=== PATIENT | female | born 1960 | race Caucasian/White ===

== ENCOUNTER 2017-03-09 01:07 | Inpatient (IN) | payer MEDICARE, MEDICAID ==
[~2017-03-09] VITALS: Ht 170.2 cm; Wt 84.0 kg
[~2017-03-09 01:07] MED LIST: ADV50250 IH; ASPI-41 PO; CARV-50 PO; CLON-527 PO; IPRA3AMP9 IH; LISI40TA4 PO; MIRT15TA8 PO; PRAV80TA3 PO; RANI-366 PO; ROPI0.252 PO; SENN-161 PO; TORS20TA3 PO; UMEC62.5 INH
[2017-03-09] MEDS ORDERED: normal saline 1000ML IV soln IVB ONE (01:15)
[2017-03-09 01:51] LABS: ABG BASE EXCESS 8.3 mmol/L (-2.0-3.0); ABG HCO3 34.9 mmol/L (22.0-26.0); ABG OXYGEN SATURATION 97.2 % (95-98); ABG PCO2 (T) 62.7 mmHg (32.0-45.0); ABG PH (T) 7.367 (7.350-7.450); ABG PO2 (T) 112.9 mmHg (83-108); FCOHb 1.4 % (0.5-1.5); FLOW 5 L/min; FMetHb 0.1 % (0.3-1.12); FO2Hb 95.7 % (94-100); PATIENT TEMPERATURE 37.9; RESPIRATORY RATE (OBSERVED) 16 b/min; TOTAL HEMOGLOBIN 10.1 G/dl (12.0-16.0)
[2017-03-09 02:05] LABS: INR 1.1 INR; PARTIAL THROMBOPLASTIN TIME 24 SECONDS (22-32); PROTHROMBIN TIME 11.3 SECONDS (9.0-12.0)
[2017-03-09 02:08] LABS: ACETAMINOPHEN < 2.0 UG/ML (10-30); ALANINE AMINOTRANSFERASE 38 U/L (12-78); ALBUMIN 2.6 G/DL (3.4-5.0); ALBUMIN/GLOBULIN RATIO 0.9 (1.1-1.5); ALKALINE PHOSPHATASE 79 IU/L (46-116); ANION GAP 3 (8-16); ASPARTATE AMINO TRANSFERASE 25 U/L (10-37); BILIRUBIN,TOTAL 1.1 MG/DL (0.1-1.0); BLOOD UREA NITROGEN 15 MG/DL (7-18); CALCIUM 7.6 MG/DL (8.5-10.1); CHLORIDE 100 MMOL/L (99-107); CREATININE 0.94 MG/DL (0.40-0.90); ETHANOL < 0.010 GM/DL (0.0-0.010); GLUCOSE 97 MG/DL (70-104); MAGNESIUM 1.8 MG/DL (1.5-2.4); POTASSIUM 3.7 MMOL/L (3.5-5.1); SODIUM 139 MMOL/L (135-145); TOTAL CARBON DIOXIDE 35.9 MMOL/L (24-32); TOTAL PROTEIN 5.4 G/DL (6.4-8.2); eGFR 62 ML/MIN
[2017-03-09 02:14] LABS: BASOPHILS % (AUTO) 0 % (0-1); EOSINOPHILS % (AUTO) 0.2 % (0-6); HEMATOCRIT 29.9 % (35.0-45.0); HEMOGLOBIN 9.9 g/dl (12.0-16.0); LYMPHOCYTES # (AUTO) 0.7 X10'3 (1.1-4.8); LYMPHOCYTES % (AUTO) 5.7 % (21-51); MEAN CORPUSCULAR HGB CONC 33.2 % (33.0-36.5); MEAN CORPUSCULAR VOLUME 84.5 FL (78-98); MEAN PLATELET VOLUME 7.7 FL (7.4-10.4); MONOCYTES # (AUTO) 0.6 X10'3 (0-0.9); MONOCYTES % (AUTO) 4.6 % (2-12); NEUTROPHILS # (AUTO) 11.8 X10'3 (1.8-7.7); NEUTROPHILS % (AUTO) 89.5 % (42-75); PLATELET COUNT 142 X10'3 (140-440); RED BLOOD COUNT 3.54 X10'6 (4.20-5.60); RED CELL DISTRIBUTION WIDTH 17.4 % (11.5-14.5); WHITE BLOOD COUNT 13.1 X10'3 (4.5-11.0)
[2017-03-09 02:47] LABS: CLARITY,URINE CLEAR (Clear); COLOR,URINE YELLOW (Yellow); GLUCOSE, URINE NEGATIVE (Neg); KETONES,URINE NEGATIVE (Neg); LEUKOCYTE ESTERASE ,URINE SMALL (Neg); NITRITES, URINE NEGATIVE (Neg); OCCULT BLOOD,URINE SMALL (Neg); PH,URINE 5.5 (4.8-8.0); PROTEIN,URINE NEGATIVE (Neg); UROBILINOGEN,URINE 0.2 E.U/dL (0.2-1.0)
[2017-03-09 02:54] LABS: UA COLLECTION TYPE STRAIGHT CATH
[2017-03-09 02:55] LABS: BACTERIA,URINE FEW /HPF (Neg); RBC,URINE 0-2 /HPF (0-2); SQUAMOUS EPITHELIAL CELL,UR FEW /LPF (FEW); WBC,URINE 0-4 /HPF (0-4)
[2017-03-09 03:30] LABS: URINE BENZODIAZEPINES SCREEN NEGATIVE (Neg); URINE CANNABINOID SCREEN NEGATIVE (Neg); URINE COCAINE SCREEN NEGATIVE (Neg); URINE METHADONE SCREEN NEGATIVE (Neg); URINE OPIATE SCREEN POSITIVE (Neg); URINE PHENCYCLIDINE SCREEN NEGATIVE (Neg)
[2017-03-09 03:44] LABS: URINE AMPHETAMINE SCREEN NEGATIVE (Neg); URINE BARBITUATE SCREEN NEGATIVE (Neg)
[2017-03-09] MEDS ORDERED: acetaminophen 325mg tablet PO PRN ×2 (03:45)
[2017-03-09] MEDS ORDERED: albuterol 2.5 MG/3 ML nebule NEB PRN (03:45)
[2017-03-09] MEDS ORDERED: magnesium 2GM in 50ml NS 50 ML IV PRN (03:45)
[2017-03-09] MEDS ORDERED: ondansetron/PF 4mg/2ml inj IV PRN (03:45)
[2017-03-09] MEDS ORDERED: magnesium Cl slow-release 64mg tablet PO PRN (03:45)
[2017-03-09] MEDS ORDERED: potassium Cl 20 mEq SR tablet PO PRN ×2 (03:45)
[2017-03-09] MEDS ORDERED: magnesium 4gm in 100ml NS 100 ML IV PRN (03:45)
[2017-03-09] MEDS ORDERED: mag hydrox/Alum hydrox/simeth 30ml oral suspension PO PRN (03:45)
[2017-03-09] MEDS ORDERED: potassium Cl 40MEQ/NS 500ml 500 ML IV PRN ×2 (03:45)
[2017-03-09] MEDS: normal saline 1000ml 1,000 ML IV SCH ×2 (04:41→13:43)
[2017-03-09 07:33] VITALS: BP 106/66
[2017-03-09] MEDS: K and/or MAG REPLACEMENT MC SCH (08:00)
[2017-03-09] MEDS ORDERED: clonazePAM 1mg tablet PO SCH ×2 (08:00→20:00)
[2017-03-09] MEDS ORDERED: furosemide 40mg tablet PO SCH (08:00)
[2017-03-09] MEDS ORDERED: carVEDilol 12.5mg tablet PO SCH (08:00)
[2017-03-09] MEDS: levoFLOXACIN-Levaquin 500mg/D5 100 ML IV SCH (08:51)
[2017-03-09] MEDS: aspirin 325mg tablet, delayed-release (Ecotrin) PO SCH (08:51)
[2017-03-09] MEDS: lactobacillus rhamnosus 10,000 MMU CELLS/CAPSULE PO SCH ×2 (08:52→16:42)
[2017-03-09] MEDS: heparin, porcine 5000 units/ml vial SQ SCH ×2 (08:52→21:12)
[2017-03-09] MEDS: ROPINIRole 0.25mg tablet PO SCH ×2 (08:52→21:10)
[2017-03-09] MEDS: famotidine 20mg tablet PO SCH ×2 (08:53→21:10)
[2017-03-09] MEDS ORDERED: carVEDilol 3.125mg tablet PO SCH (09:40)
[2017-03-09] MEDS ORDERED: PER5325T PO (10:52)
[2017-03-09 11:33] VITALS: BP 93/47
[2017-03-09] MEDS: oxyCODONE/APAP 5-325mg tablet PO PRN ×3 (12:58→21:13)
[2017-03-09 19:30] VITALS: BP 94/80
[2017-03-09] MEDS ORDERED: lisinopril 2.5mg tablet PO SCH (21:00)
[2017-03-09] MEDS: pravastatin 40mg tablet PO SCH (21:10)
[2017-03-09] MEDS: mirtazapine 15mg tablet PO SCH (21:12)
[2017-03-09] MEDS: sennosides 8.6mg tablet PO SCH (21:12)
[2017-03-09] MEDS: clonazePAM 1mg tablet PO PRN (21:28)
[2017-03-10] VITALS: BP 110/81
[2017-03-10] MEDS: oxyCODONE/APAP 5-325mg tablet PO PRN ×4 (01:20→13:54)
[2017-03-10 06:42] LABS: BASOPHILS % (AUTO) 0.4 % (0-1); EOSINOPHILS # (AUTO) 0.1 X10'3 (0-0.9); EOSINOPHILS % (AUTO) 2.1 % (0-6); HEMATOCRIT 26.6 % (35.0-45.0); HEMOGLOBIN 8.5 g/dl (12.0-16.0); LYMPHOCYTES # (AUTO) 0.9 X10'3 (1.1-4.8); LYMPHOCYTES % (AUTO) 14.8 % (21-51); MEAN CORPUSCULAR HEMOGLOBIN 27.5 PG (27.0-31.0); MEAN CORPUSCULAR HGB CONC 31.9 % (33.0-36.5); MEAN CORPUSCULAR VOLUME 86.1 FL (78-98); MEAN PLATELET VOLUME 7.2 FL (7.4-10.4); MONOCYTES # (AUTO) 0.4 X10'3 (0-0.9); MONOCYTES % (AUTO) 6.5 % (2-12); NEUTROPHILS # (AUTO) 4.5 X10'3 (1.8-7.7); NEUTROPHILS % (AUTO) 76.2 % (42-75); PLATELET COUNT 114 X10'3 (140-440); RED BLOOD COUNT 3.09 X10'6 (4.20-5.60); WHITE BLOOD COUNT 5.8 X10'3 (4.5-11.0)
[2017-03-10 07:39] LABS: ALANINE AMINOTRANSFERASE 34 U/L (12-78); ALBUMIN 2.1 G/DL (3.4-5.0); ALBUMIN/GLOBULIN RATIO 0.7 (1.1-1.5); ALKALINE PHOSPHATASE 86 IU/L (46-116); ANION GAP 1 (8-16); ASPARTATE AMINO TRANSFERASE 23 U/L (10-37); BILIRUBIN,TOTAL 0.6 MG/DL (0.1-1.0); BLOOD UREA NITROGEN 10 MG/DL (7-18); BUN/CREATININE RATIO 15.9 (6.6-38.0); CALCIUM 7.9 MG/DL (8.5-10.1); CHLORIDE 108 MMOL/L (99-107); CHOLESTEROL 120 MG/DL (0-200); CREATININE 0.63 MG/DL (0.40-0.90); GLUCOSE 126 MG/DL (70-104); HDL CHOLESTEROL 60 MG/DL (35-60); LDL CHOLESTEROL 51 MG/DL (50-100); MAGNESIUM 1.9 MG/DL (1.5-2.4); POTASSIUM 3.9 MMOL/L (3.5-5.1); SODIUM 146 MMOL/L (135-145); TOTAL CARBON DIOXIDE 36.9 MMOL/L (24-32); TRIGLYCERIDES 89 MG/DL (20-135); eGFR > 90 ML/MIN
[2017-03-10 08:00] VITALS: BP 106/64
[2017-03-10] MEDS: K and/or MAG REPLACEMENT MC SCH (08:00)
[2017-03-10] MEDS: lactobacillus rhamnosus 10,000 MMU CELLS/CAPSULE PO SCH ×2 (08:38→17:44)
[2017-03-10] MEDS: levoFLOXACIN-Levaquin 500mg/D5 100 ML IV SCH (08:38)
[2017-03-10] MEDS: aspirin 325mg tablet, delayed-release (Ecotrin) PO SCH (08:38)
[2017-03-10] MEDS: famotidine 20mg tablet PO SCH ×2 (08:38→20:50)
[2017-03-10] MEDS: ROPINIRole 0.25mg tablet PO SCH ×2 (08:39→20:51)
[2017-03-10] MEDS: clonazePAM 1mg tablet PO PRN (08:39)
[2017-03-10] MEDS: furosemide 20MG tablet PO SCH ×3 (08:39→20:50)
[2017-03-10] MEDS: heparin, porcine 5000 units/ml vial SQ SCH ×2 (08:42→20:51)
[2017-03-10 11:33] VITALS: BP_SYST 121; BP_SYST 123; BP_SYST 124; BP_DIAS 69; BP_DIAS 71; BP_DIAS 84
[2017-03-10 11:34] VITALS: BP 123/71
[2017-03-10] MEDS: Protein Shake (high protein) 240ml (8oz) cup PO SCH ×2 (13:09→19:10)
[2017-03-10] MEDS: oxyCODONE/APAP 10/325mg tablet PO PRN ×2 (17:44→22:41)
[2017-03-10] MEDS: ipratropium/albuterol 3ml nebule NEB PRN (18:57)
[2017-03-10 19:15] VITALS: BP 110/61
[2017-03-10] MEDS: pravastatin 40mg tablet PO SCH (20:50)
[2017-03-10] MEDS: mirtazapine 15mg tablet PO SCH (20:50)
[2017-03-10] MEDS: sennosides 8.6mg tablet PO SCH (20:50)
[2017-03-10 23:30] VITALS: BP 108/68
[2017-03-11] MEDS: oxyCODONE/APAP 10/325mg tablet PO PRN ×6 (02:52→23:59)
[2017-03-11 05:33] LABS: BASOPHILS % (AUTO) 0.4 % (0-1); EOSINOPHILS # (AUTO) 0.1 X10'3 (0-0.9); EOSINOPHILS % (AUTO) 2.3 % (0-6); HEMATOCRIT 24.8 % (35.0-45.0); HEMOGLOBIN 7.9 g/dl (12.0-16.0); LYMPHOCYTES % (AUTO) 17.2 % (21-51); MEAN CORPUSCULAR HEMOGLOBIN 27.6 PG (27.0-31.0); MEAN CORPUSCULAR VOLUME 86.1 FL (78-98); MEAN PLATELET VOLUME 7.4 FL (7.4-10.4); MONOCYTES # (AUTO) 0.3 X10'3 (0-0.9); MONOCYTES % (AUTO) 5.9 % (2-12); NEUTROPHILS # (AUTO) 4.3 X10'3 (1.8-7.7); NEUTROPHILS % (AUTO) 74.2 % (42-75); PLATELET COUNT 111 X10'3 (140-440); RED BLOOD COUNT 2.88 X10'6 (4.20-5.60); RED CELL DISTRIBUTION WIDTH 18.7 % (11.5-14.5); WHITE BLOOD COUNT 5.9 X10'3 (4.5-11.0)
[2017-03-11 05:49] VITALS: BP 101/61
[2017-03-11] MEDS: furosemide 20MG tablet PO SCH ×2 (05:50→16:04)
[2017-03-11 06:15] LABS: ALANINE AMINOTRANSFERASE 33 U/L (12-78); ALBUMIN 2.1 G/DL (3.4-5.0); ALBUMIN/GLOBULIN RATIO 0.8 (1.1-1.5); ALKALINE PHOSPHATASE 76 IU/L (46-116); ANION GAP 3 (8-16); ASPARTATE AMINO TRANSFERASE 22 U/L (10-37); BILIRUBIN,TOTAL 0.6 MG/DL (0.1-1.0); BLOOD UREA NITROGEN 12 MG/DL (7-18); BUN/CREATININE RATIO 21.4 (6.6-38.0); CHLORIDE 105 MMOL/L (99-107); CREATININE 0.56 MG/DL (0.40-0.90); GLUCOSE 108 MG/DL (70-104); MAGNESIUM 1.7 MG/DL (1.5-2.4); SODIUM 143 MMOL/L (135-145); TOTAL CARBON DIOXIDE 35.4 MMOL/L (24-32); TOTAL PROTEIN 4.9 G/DL (6.4-8.2); eGFR > 90 ML/MIN
[2017-03-11] MEDS: lactobacillus rhamnosus 10,000 MMU CELLS/CAPSULE PO SCH ×2 (07:24→17:53)
[2017-03-11] MEDS: levoFLOXACIN-Levaquin 500mg/D5 100 ML IV SCH (07:24)
[2017-03-11] MEDS: aspirin 325mg tablet, delayed-release (Ecotrin) PO SCH (07:24)
[2017-03-11] MEDS: famotidine 20mg tablet PO SCH ×2 (07:24→19:45)
[2017-03-11] MEDS: ROPINIRole 0.25mg tablet PO SCH ×2 (07:24→19:45)
[2017-03-11] MEDS: heparin, porcine 5000 units/ml vial SQ SCH (07:29)
[2017-03-11] MEDS: K and/or MAG REPLACEMENT MC SCH (07:29)
[2017-03-11 07:30] VITALS: BP 119/73
[2017-03-11] MEDS: clonazePAM 1mg tablet PO PRN ×2 (07:44→23:59)
[2017-03-11] MEDS: Protein Shake (high protein) 240ml (8oz) cup PO SCH ×3 (08:00→18:00)
[2017-03-11] MEDS: ipratropium/albuterol 3ml nebule NEB PRN (11:26)
[2017-03-11] MEDS: magnesium hydroxide 30ml (MOM) UD suspension PO PRN (13:15)
[2017-03-11] MEDS ORDERED: magnesium hydroxide 30ml (MOM) UD suspension PO ONE (14:35)
[2017-03-11 18:25] LABS: % IRON SATURATION 11 % (11-46); IRON 33 UG/DL (49-151); TOTAL IRON BINDING CAPACITY 301 UG/DL (259-388)
[2017-03-11] MEDS: mirtazapine 15mg tablet PO SCH (19:45)
[2017-03-11] MEDS: pravastatin 40mg tablet PO SCH (19:45)
[2017-03-11] MEDS: sennosides 8.6mg tablet PO SCH (19:46)
[2017-03-11 20:10] VITALS: BP_SYST 106; BP_SYST 127; BP_DIAS 74; BP_DIAS 80
[2017-03-11] MEDS ORDERED: docusate sod 250mg capsule PO SCH (21:00)
[2017-03-11 23:45] VITALS: BP 99/59
[2017-03-12] MEDS: furosemide 20MG tablet PO SCH (04:55)
[2017-03-12 04:56] VITALS: BP 105/63
[2017-03-12] MEDS: oxyCODONE/APAP 10/325mg tablet PO PRN ×2 (04:56→09:18)
[2017-03-12] MEDS: magnesium hydroxide 30ml (MOM) UD suspension PO PRN (05:10)
[2017-03-12 06:01] LABS: BASOPHILS % (AUTO) 0.3 % (0-1); EOSINOPHILS # (AUTO) 0.1 X10'3 (0-0.9); EOSINOPHILS % (AUTO) 2.3 % (0-6); HEMATOCRIT 26.7 % (35.0-45.0); HEMOGLOBIN 8.6 g/dl (12.0-16.0); LYMPHOCYTES # (AUTO) 1.1 X10'3 (1.1-4.8); LYMPHOCYTES % (AUTO) 20.9 % (21-51); MEAN CORPUSCULAR HEMOGLOBIN 27.6 PG (27.0-31.0); MEAN CORPUSCULAR VOLUME 86.2 FL (78-98); MEAN PLATELET VOLUME 7.4 FL (7.4-10.4); MONOCYTES # (AUTO) 0.3 X10'3 (0-0.9); MONOCYTES % (AUTO) 5.1 % (2-12); NEUTROPHILS # (AUTO) 3.9 X10'3 (1.8-7.7); NEUTROPHILS % (AUTO) 71.4 % (42-75); PLATELET COUNT 124 X10'3 (140-440); RED CELL DISTRIBUTION WIDTH 20.1 % (11.5-14.5); WHITE BLOOD COUNT 5.4 X10'3 (4.5-11.0)
[2017-03-12 06:16] LABS: ALANINE AMINOTRANSFERASE 31 U/L (12-78); ALBUMIN 2.2 G/DL (3.4-5.0); ALBUMIN/GLOBULIN RATIO 0.7 (1.1-1.5); ALKALINE PHOSPHATASE 91 IU/L (46-116); ANION GAP 2 (8-16); ASPARTATE AMINO TRANSFERASE 22 U/L (10-37); BILIRUBIN,TOTAL 0.7 MG/DL (0.1-1.0); BLOOD UREA NITROGEN 12 MG/DL (7-18); BUN/CREATININE RATIO 17.6 (6.6-38.0); CALCIUM 7.9 MG/DL (8.5-10.1); CHLORIDE 103 MMOL/L (99-107); CREATININE 0.68 MG/DL (0.40-0.90); GLUCOSE 96 MG/DL (70-104); MAGNESIUM 1.8 MG/DL (1.5-2.4); POTASSIUM 4.2 MMOL/L (3.5-5.1); SODIUM 140 MMOL/L (135-145); TOTAL CARBON DIOXIDE 34.7 MMOL/L (24-32); TOTAL PROTEIN 5.3 G/DL (6.4-8.2); eGFR 90 ML/MIN
[2017-03-12] MEDS: K and/or MAG REPLACEMENT MC SCH (08:00)
[2017-03-12] MEDS: aspirin 325mg tablet, delayed-release (Ecotrin) PO SCH (08:17)
[2017-03-12] MEDS: ROPINIRole 0.25mg tablet PO SCH (08:17)
[2017-03-12] MEDS: lactobacillus rhamnosus 10,000 MMU CELLS/CAPSULE PO SCH (08:17)
[2017-03-12] MEDS: famotidine 20mg tablet PO SCH (08:17)
[2017-03-12] MEDS: levoFLOXACIN-Levaquin 500mg/D5 100 ML IV SCH (08:17)
[2017-03-12] MEDS: Protein Shake (high protein) 240ml (8oz) cup PO SCH ×2 (08:18→13:05)
[2017-03-12 08:27] VITALS: BP 130/76
[2017-03-12] MEDS: clonazePAM 1mg tablet PO PRN (10:59)
[2017-03-12] MEDS ORDERED: oxyCODONE IR 5mg (immed. release) tablet PO PRN (11:55)
[2017-03-12 12:01] VITALS: BP 117/70
== END 2017-03-12 15:00 | DRG 91 ==
LOC: ER 01:08 → ED HOLD 03:43 → SUR 3N 07:27
PROVIDERS: ADMIT Internal Medicine; ATTEND Internal Medicine
DX: G92 Toxic encephalopathy (principal); I50.33 Acute on chronic diastolic (congestive) heart failure; J44.0 Chronic obstructive pulmonary disease with (acute) lower respiratory infection; J44.1 Chronic obstructive pulmonary disease with (acute) exacerbation; W18.39XA Other fall on same level, initial encounter; D64.9 Anemia, unspecified; E78.5 Hyperlipidemia, unspecified; F32.9 Major depressive disorder, single episode, unspecified; G89.4 Chronic pain syndrome; I11.0 Hypertensive heart disease with heart failure; J20.9 Acute bronchitis, unspecified; K21.9 Gastro-esophageal reflux disease without esophagitis; F41.9 Anxiety disorder, unspecified; R29.6 Repeated falls; R91.1 Solitary pulmonary nodule; T42.8X5A Adverse effect of antiparkinsonism drugs and other central muscle-tone depressants, initial encounter; T42.4X5A Adverse effect of benzodiazepines, initial encounter; T40.2X5A Adverse effect of other opioids, initial encounter; F12.90 Cannabis use, unspecified, uncomplicated; Z96.641 Presence of right artificial hip joint; Z88.5 Allergy status to narcotic agent; Z87.891 Personal history of nicotine dependence; Y93.89 Activity, other specified; Y99.8 Other external cause status; Y92.008 Other place in unspecified non-institutional (private) residence as the place of occurrence of the external cause
CPT/HCPCS: 36415; 36600; 70450; 71010; 71250; 73521; 80053; 80061; 80305; 80320; 80329; 81001; 82803; 83540; 83550; 83605; 83735; 85018; 85025; 85610; 85730; 87040; 87070; 87088; 93005; 94640; 94760; 96360; 97116; 97162; 97530; 99285; A4353; A6196; A6212; A6213; A6223; A6255; A6446; A6449; J1644; J1956; J7030

== ENCOUNTER 2017-04-08 16:52 | Inpatient (IN) | payer MEDICARE, MEDICAID ==
[~2017-04-08] VITALS: Ht 170.2 cm; Wt 90.0 kg
[~2017-04-08 16:52] MED LIST changes: +PER5325T PO; +etomidate 2mg/ml inj. ONE; +rocuronium 10mg/ml inj IV ONE; +sod chloride 0.9% 10ml flush syringe IV ONE
[2017-04-08] MEDS ORDERED: propofol 1000mg/100ml bottle 100 ML IV SCH (17:25)
[2017-04-08] MEDS ORDERED: dexamethasone sod phosphate 10mg/ml inj IV STA (17:29)
[2017-04-08] MEDS ORDERED: etomidate 2mg/ml inj. IV ONE (17:30)
[2017-04-08] MEDS ORDERED: levoFLOXACIN-Levaquin 750MG/D5 150 ML IV ONE (17:30)
[2017-04-08] MEDS ORDERED: CefTRIAXone 2gm/NS 100ml IVPB 100 ML IV ONE (17:30)
[2017-04-08] MEDS ORDERED: propofol 1000mg/100ml bottle 100 ML IV ONE (17:30)
[2017-04-08] MEDS ORDERED: normal saline 1000ML IV soln IV ONE (17:30)
[2017-04-08] MEDS ORDERED: rocuronium 10mg/ml inj IV ONE (17:30)
[2017-04-08 17:31] LABS: ABG BASE EXCESS 10.3 mmol/L (-2.0-3.0); ABG HCO3 38.5 mmol/L (22.0-26.0); ABG OXYGEN SATURATION 99.2 % (95-98); ABG PCO2 (T) 75.4 mmHg (32.0-45.0); ABG PH (T) 7.326 (7.350-7.450); ABG PO2 (T) 261.1 mmHg (83-108); ALLEN'S TEST Positive; FCOHb 1.1 % (0.5-1.5); FLOW 35 L/min; FMetHb 0.2 % (0.3-1.12); FO2Hb 97.9 % (94-100); MINUTE VOLUME 8 L/min; PEEP 5 cm H2O; RESPIRATORY RATE 16 b/min; RESPIRATORY RATE (OBSERVED) 16 b/min; TIDAL VOLUME 500 mL; TOTAL HEMOGLOBIN 10.2 G/dl (12.0-16.0)
[2017-04-08 18:04] LABS: ALANINE AMINOTRANSFERASE 26 U/L (12-78); ALBUMIN 2.7 G/DL (3.4-5.0); ALBUMIN/GLOBULIN RATIO 0.7 (1.1-1.5); ALKALINE PHOSPHATASE 130 IU/L (46-116); ANION GAP 3 (8-16); ASPARTATE AMINO TRANSFERASE 28 U/L (10-37); BILIRUBIN,TOTAL 0.3 MG/DL (0.1-1.0); BLOOD UREA NITROGEN 21 MG/DL (7-18); BUN/CREATININE RATIO 26.3 (6.6-38.0); CALCIUM 8.4 MG/DL (8.5-10.1); CHLORIDE 101 MMOL/L (99-107); GLUCOSE 166 MG/DL (70-104); SODIUM 141 MMOL/L (135-145); TOTAL PROTEIN 6.6 G/DL (6.4-8.2); eGFR 74 ML/MIN
[2017-04-08 18:05] LABS: POTASSIUM 4.7 MMOL/L (3.5-5.1)
[2017-04-08 18:15] LABS: BASOPHILS % (AUTO) 0.1 % (0-1); EOSINOPHILS # (AUTO) 0.2 X10'3 (0-0.9); EOSINOPHILS % (AUTO) 1.5 % (0-6); HEMATOCRIT 26.9 % (35.0-45.0); HEMOGLOBIN 8.3 g/dl (12.0-16.0); LYMPHOCYTES # (AUTO) 0.7 X10'3 (1.1-4.8); LYMPHOCYTES % (AUTO) 6.6 % (21-51); MEAN CORPUSCULAR HEMOGLOBIN 24.8 PG (27.0-31.0); MEAN CORPUSCULAR HGB CONC 30.7 % (33.0-36.5); MEAN PLATELET VOLUME 7.6 FL (7.4-10.4); MONOCYTES # (AUTO) 0.7 X10'3 (0-0.9); MONOCYTES % (AUTO) 5.9 % (2-12); NEUTROPHILS # (AUTO) 9.5 X10'3 (1.8-7.7); NEUTROPHILS % (AUTO) 85.9 % (42-75); PLATELET COUNT 288 X10'3 (140-440); RED BLOOD COUNT 3.32 X10'6 (4.20-5.60); RED CELL DISTRIBUTION WIDTH 20.8 % (11.5-14.5); WHITE BLOOD COUNT 11.1 X10'3 (4.5-11.0)
[2017-04-08 18:22] LABS: CLARITY,URINE CLEAR (Clear); COLOR,URINE YELLOW (Yellow); GLUCOSE, URINE NEGATIVE (Neg); KETONES,URINE NEGATIVE (Neg); LEUKOCYTE ESTERASE ,URINE NEGATIVE (Neg); NITRITES, URINE NEGATIVE (Neg); OCCULT BLOOD,URINE NEGATIVE (Neg); PH,URINE 5.5 (4.8-8.0); PROTEIN,URINE TRACE mg/dl (Neg); UA COLLECTION TYPE FOLEY CATH; UROBILINOGEN,URINE 0.2 E.U/dL (0.2-1.0)
[2017-04-08] MEDS ORDERED: midazolam 100mg in NS 100ml 100 ML IV ONE (18:25)
[2017-04-08] MEDS ORDERED: MIDAZolam 5mg/ml 2ml vial IV ONE (18:25)
[2017-04-08 18:26] LABS: INR 1.2 INR; PARTIAL THROMBOPLASTIN TIME 23 SECONDS (22-32); PROTHROMBIN TIME 12.4 SECONDS (9.0-12.0)
[2017-04-08] MEDS ORDERED: midazolam 2 mg/2 ml injection ONE ×2 (18:27→18:32)
[2017-04-08 18:31] LABS: NUCLEATED RED BLOOD CELLS 2 /100WBC (0-0); PLATELET ESTIMATE NORMAL; POLYCHROMASIA 1+; TOTAL CELLS COUNTED 100
[2017-04-08 18:33] LABS: ANISOCYTOSIS 3+
[2017-04-08 18:34] LABS: HYPOCHROMASIA 2+
[2017-04-08 18:34] LABS: WBC,URINE NONE SEEN /HPF (0-4)
[2017-04-08 18:35] LABS: ELLIPTOCYTES FEW; TEAR DROP CELLS FEW
[2017-04-08 18:35] LABS: BACTERIA,URINE NONE SEEN /HPF (Neg); HYALINE CASTS >30 /LPF (NEGATIVE); MUCUS STRANDS FEW /LPF (Neg); RBC,URINE 0-2 /HPF (0-2); SQUAMOUS EPITHELIAL CELL,UR NONE SEEN /LPF (FEW)
[2017-04-08] MEDS ORDERED: midazolam 100mg in NS 100ml 100 ML IV PRN (18:53)
[2017-04-08] MEDS ORDERED: fentaNYL/PF 50MCG/1 ML 2ML syringe IV PRN (18:55)
[2017-04-08] MEDS ORDERED: potassium Cl 20 mEq SR tablet PO PRN ×2 (18:55)
[2017-04-08] MEDS ORDERED: ondansetron/PF 4mg/2ml inj IV PRN (18:55)
[2017-04-08] MEDS ORDERED: ipratropium/albuterol 3ml nebule IH PRN (18:55)
[2017-04-08] MEDS ORDERED: acetaminophen 325mg tablet PO PRN ×2 (18:55)
[2017-04-08] MEDS ORDERED: midazolam 2 mg/2 ml injection IV ONE (18:55)
[2017-04-08] MEDS ORDERED: potassium Cl 40MEQ/250ML bag 250 ML IV PRN (18:55)
[2017-04-08] MEDS ORDERED: ipratropium/albuterol 3ml nebule NEB PRN (18:55)
[2017-04-08] MEDS ORDERED: potassium Cl 40MEQ/250ML bag 250 ML IV SCH (18:55)
[2017-04-08] MEDS ORDERED: potassium Cl 40MEQ/NS 500ml 500 ML IV PRN ×2 (18:55)
[2017-04-08] MEDS: ipratropium/albuterol 3ml nebule NEB SCH ×2 (19:00→23:30)
[2017-04-08] MEDS: normal saline 1000ml 1,000 ML IV SCH ×3 (19:05→22:34)
[2017-04-08] MEDS: docusate sod 100mg capsule PO SCH (20:00)
[2017-04-08 21:30] VITALS: BP 103/70
[2017-04-08] MEDS: FENTANYL-0.9 % NACL/PF 100 ML IV PRN (21:34)
[2017-04-08] MEDS: UMECLIDINIUM BROMIDE IH SCH (21:45)
[2017-04-08 22:00] VITALS: BP 127/60
[2017-04-08] MEDS: midazolam 100mg in NS 100ml 100 ML IV SCH (22:31)
[2017-04-08] MEDS: mirtazapine 15mg tablet PO SCH (22:41)
[2017-04-08] MEDS: sennosides 8.6mg tablet PO SCH (22:41)
[2017-04-08] MEDS: methylPREDNISolone sod succ 125mg/2ml vial IV SCH (22:42)
[2017-04-08] MEDS: famotidine/PF 10 mg/ml inj IV SCH (22:42)
[2017-04-08] MEDS: chlorhexidine gluconate 15ml Cup****oral rinse MM SCH (22:42)
[2017-04-08 23:00] VITALS: BP 110/71
[2017-04-09] VITALS (24 sets, daily range): BP systolic 92–124; BP diastolic 57–77
[2017-04-09] MEDS: methylPREDNISolone sod succ 125mg/2ml vial IV SCH ×4 (01:58→20:00)
[2017-04-09 02:40] LABS: BASOPHILS % (AUTO) 0 % (0-1); EOSINOPHILS # (AUTO) 0.2 X10'3 (0-0.9); EOSINOPHILS % (AUTO) 1.9 % (0-6); HEMATOCRIT 26.8 % (35.0-45.0); HEMOGLOBIN 8.3 g/dl (12.0-16.0); LYMPHOCYTES # (AUTO) 0.5 X10'3 (1.1-4.8); LYMPHOCYTES % (AUTO) 4.1 % (21-51); MEAN CORPUSCULAR HEMOGLOBIN 24.8 PG (27.0-31.0); MEAN CORPUSCULAR HGB CONC 30.9 % (33.0-36.5); MEAN CORPUSCULAR VOLUME 80.1 FL (78-98); MEAN PLATELET VOLUME 7.7 FL (7.4-10.4); MONOCYTES # (AUTO) 0.1 X10'3 (0-0.9); MONOCYTES % (AUTO) 0.8 % (2-12); NEUTROPHILS # (AUTO) 10.7 X10'3 (1.8-7.7); NEUTROPHILS % (AUTO) 93.2 % (42-75); PLATELET COUNT 237 X10'3 (140-440); RED BLOOD COUNT 3.34 X10'6 (4.20-5.60); RED CELL DISTRIBUTION WIDTH 20.3 % (11.5-14.5); WHITE BLOOD COUNT 11.5 X10'3 (4.5-11.0)
[2017-04-09 02:59] LABS: ALANINE AMINOTRANSFERASE 24 U/L (12-78); ALBUMIN 2.4 G/DL (3.4-5.0); ALBUMIN/GLOBULIN RATIO 0.7 (1.1-1.5); ALKALINE PHOSPHATASE 109 IU/L (46-116); ANION GAP 6 (8-16); ASPARTATE AMINO TRANSFERASE 21 U/L (10-37); BILIRUBIN,TOTAL 0.3 MG/DL (0.1-1.0); BLOOD UREA NITROGEN 13 MG/DL (7-18); BUN/CREATININE RATIO 21.7 (6.6-38.0); CHLORIDE 106 MMOL/L (99-107); GLUCOSE 114 MG/DL (70-104); MAGNESIUM 1.9 MG/DL (1.5-2.4); PHOSPHORUS 3.4 MG/DL (2.3-4.5); POTASSIUM 4.1 MMOL/L (3.5-5.1); SODIUM 144 MMOL/L (135-145); TOTAL CARBON DIOXIDE 32.3 MMOL/L (24-32); TOTAL PROTEIN 5.8 G/DL (6.4-8.2); eGFR > 90 ML/MIN
[2017-04-09] MEDS: ipratropium/albuterol 3ml nebule NEB SCH ×6 (03:57→23:52)
[2017-04-09 05:06] LABS: ABG BASE EXCESS 2.6 mmol/L (-2.0-3.0); ABG HCO3 25.9 mmol/L (22.0-26.0); ABG OXYGEN SATURATION 94.5 % (95-98); ABG PCO2 (T) 35.5 mmHg (32.0-45.0); ABG PH (T) 7.484 (7.350-7.450); ABG PO2 (T) 70.9 mmHg (83-108); FCOHb 1.3 % (0.5-1.5); FMetHb 0.1 % (0.3-1.12); FO2Hb 93.2 % (94-100); MINUTE VOLUME 17 L/min; PATIENT TEMPERATURE 37.7; PEEP 5 cm H2O; RESPIRATORY RATE 20 b/min; TIDAL VOLUME 500 mL; TOTAL HEMOGLOBIN 7.8 G/dl (12.0-16.0)
[2017-04-09] MEDS: midazolam 100mg in NS 100ml 100 ML IV SCH (05:36)
[2017-04-09] MEDS: normal saline 1000ml 1,000 ML IV SCH (06:27)
[2017-04-09] MEDS: famotidine/PF 10 mg/ml inj IV SCH ×2 (07:52→20:01)
[2017-04-09] MEDS: enoxaparin 40mg/0.4ml syringe SUBCUT SCH (07:52)
[2017-04-09] MEDS: cefTRIAXone 1g/NS 100ml IVPB 100 ML IV SCH (07:53)
[2017-04-09] MEDS: chlorhexidine gluconate 15ml Cup****oral rinse MM SCH (07:55)
[2017-04-09] MEDS: aspirin 325mg tablet, delayed-release (Ecotrin) PO SCH (08:00)
[2017-04-09] MEDS: UMECLIDINIUM BROMIDE IH SCH (08:00)
[2017-04-09] MEDS: docusate sod 100mg capsule PO SCH ×2 (08:00→20:02)
[2017-04-09] MEDS: atorvastatin 20mg tablet PO SCH (08:00)
[2017-04-09] MEDS ORDERED: furosemide 40mg/4ml inj ONE (08:29)
[2017-04-09] MEDS ORDERED: furosemide 40mg/4ml inj IV ONE (08:30)
[2017-04-09] MEDS: FENTANYL-0.9 % NACL/PF 100 ML IV PRN (10:42)
[2017-04-09] MEDS: clonazePAM 1mg tablet PO SCH ×2 (14:29→20:02)
[2017-04-09] MEDS: oxyCODONE/APAP 5-325mg tablet PO PRN ×2 (14:30→18:46)
[2017-04-09 16:04] LABS: MAGNESIUM 2.1 MG/DL (1.5-2.4); PHOSPHORUS 3.6 MG/DL (2.3-4.5); POTASSIUM 3.7 MMOL/L (3.5-5.1)
[2017-04-09] MEDS: lactobacillus rhamnosus 10,000 MMU CELLS/CAPSULE PO SCH (16:56)
[2017-04-09] MEDS ORDERED: mineral oil/petrolatum ophthal oint EACHEYE SCH (20:00)
[2017-04-09] MEDS: sennosides 8.6mg tablet PO SCH (20:02)
[2017-04-09] MEDS: mirtazapine 15mg tablet PO SCH (20:02)
[2017-04-10] VITALS (16 sets, daily range): BP systolic 92–134; BP diastolic 39–82
[2017-04-10] MEDS: oxyCODONE/APAP 5-325mg tablet PO PRN ×6 (00:11→22:10)
[2017-04-10] MEDS ORDERED: vancomycin/NS 1 GM ADD-VANTAGE 250 ML IV ONE (01:20)
[2017-04-10] MEDS: methylPREDNISolone sod succ 125mg/2ml vial IV SCH ×3 (02:08→20:48)
[2017-04-10] MEDS: ipratropium/albuterol 3ml nebule NEB SCH ×6 (03:00→22:49)
[2017-04-10 03:54] LABS: BASOPHILS % (AUTO) 0 % (0-1); EOSINOPHILS % (AUTO) 0 % (0-6); HEMATOCRIT 25.1 % (35.0-45.0); HEMOGLOBIN 7.9 g/dl (12.0-16.0); LYMPHOCYTES # (AUTO) 0.5 X10'3 (1.1-4.8); LYMPHOCYTES % (AUTO) 6.4 % (21-51); MEAN CORPUSCULAR HEMOGLOBIN 24.9 PG (27.0-31.0); MEAN CORPUSCULAR HGB CONC 31.5 % (33.0-36.5); MEAN PLATELET VOLUME 8.1 FL (7.4-10.4); MONOCYTES # (AUTO) 0.2 X10'3 (0-0.9); MONOCYTES % (AUTO) 3.3 % (2-12); NEUTROPHILS # (AUTO) 6.7 X10'3 (1.8-7.7); NEUTROPHILS % (AUTO) 90.3 % (42-75); PLATELET COUNT 246 X10'3 (140-440); RED BLOOD COUNT 3.17 X10'6 (4.20-5.60); RED CELL DISTRIBUTION WIDTH 20.9 % (11.5-14.5); WHITE BLOOD COUNT 7.4 X10'3 (4.5-11.0)
[2017-04-10 04:08] LABS: ALANINE AMINOTRANSFERASE 19 U/L (12-78); ALBUMIN 2.4 G/DL (3.4-5.0); ALBUMIN/GLOBULIN RATIO 0.7 (1.1-1.5); ALKALINE PHOSPHATASE 94 IU/L (46-116); ANION GAP 7 (8-16); ASPARTATE AMINO TRANSFERASE 15 U/L (10-37); BILIRUBIN,TOTAL 0.3 MG/DL (0.1-1.0); BLOOD UREA NITROGEN 13 MG/DL (7-18); BUN/CREATININE RATIO 18.6 (6.6-38.0); CALCIUM 8.1 MG/DL (8.5-10.1); CHLORIDE 106 MMOL/L (99-107); GLUCOSE 127 MG/DL (70-104); MAGNESIUM 2.3 MG/DL (1.5-2.4); PHOSPHORUS 2.8 MG/DL (2.3-4.5); POTASSIUM 3.8 MMOL/L (3.5-5.1); SODIUM 146 MMOL/L (135-145); TOTAL PROTEIN 5.7 G/DL (6.4-8.2); eGFR 87 ML/MIN
[2017-04-10] MEDS: famotidine/PF 10 mg/ml inj IV SCH ×2 (07:49→20:50)
[2017-04-10] MEDS: atorvastatin 20mg tablet PO SCH (07:52)
[2017-04-10] MEDS: enoxaparin 40mg/0.4ml syringe SUBCUT SCH (07:52)
[2017-04-10] MEDS: cefTRIAXone 1g/NS 100ml IVPB 100 ML IV SCH (07:52)
[2017-04-10] MEDS: docusate sod 100mg capsule PO SCH ×2 (07:52→20:46)
[2017-04-10] MEDS: clonazePAM 1mg tablet PO SCH ×3 (07:52→20:46)
[2017-04-10] MEDS: lactobacillus rhamnosus 10,000 MMU CELLS/CAPSULE PO SCH ×2 (07:52→17:36)
[2017-04-10] MEDS: aspirin 325mg tablet, delayed-release (Ecotrin) PO SCH (07:53)
[2017-04-10] MEDS: UMECLIDINIUM BROMIDE IH SCH (07:53)
[2017-04-10] MEDS: vancomycin inj 1,250 MG in normal saline 250ml IV soln 250 ML IV SCH ×2 (10:39→17:31)
[2017-04-10] MEDS: furosemide 40mg/4ml inj IV SCH (20:40)
[2017-04-10] MEDS: sennosides 8.6mg tablet PO SCH (20:46)
[2017-04-10] MEDS: mirtazapine 15mg tablet PO SCH (20:47)
[2017-04-11] VITALS: BP 124/75
[2017-04-11] MEDS ORDERED: temazepam 15mg capsule PO PRN (01:10)
[2017-04-11] MEDS: vancomycin inj 1,250 MG in normal saline 250ml IV soln 250 ML IV SCH ×2 (01:37→10:00)
[2017-04-11] MEDS: ipratropium/albuterol 3ml nebule NEB SCH ×4 (02:55→14:09)
[2017-04-11] MEDS: oxyCODONE/APAP 5-325mg tablet PO PRN ×3 (04:53→14:13)
[2017-04-11 06:05] LABS: BASOPHILS % (AUTO) 0.1 % (0-1); EOSINOPHILS # (AUTO) 0.2 X10'3 (0-0.9); EOSINOPHILS % (AUTO) 1.8 % (0-6); HEMATOCRIT 26.9 % (35.0-45.0); HEMOGLOBIN 8.4 g/dl (12.0-16.0); LYMPHOCYTES # (AUTO) 0.7 X10'3 (1.1-4.8); MEAN CORPUSCULAR HEMOGLOBIN 24.8 PG (27.0-31.0); MEAN CORPUSCULAR HGB CONC 31.4 % (33.0-36.5); MEAN CORPUSCULAR VOLUME 79.1 FL (78-98); MEAN PLATELET VOLUME 7.4 FL (7.4-10.4); MONOCYTES # (AUTO) 0.6 X10'3 (0-0.9); MONOCYTES % (AUTO) 5.9 % (2-12); NEUTROPHILS # (AUTO) 8.1 X10'3 (1.8-7.7); NEUTROPHILS % (AUTO) 85.2 % (42-75); PLATELET COUNT 265 X10'3 (140-440); RED CELL DISTRIBUTION WIDTH 20.4 % (11.5-14.5); WHITE BLOOD COUNT 9.5 X10'3 (4.5-11.0)
[2017-04-11 06:36] LABS: ALANINE AMINOTRANSFERASE 23 U/L (12-78); ALBUMIN 2.4 G/DL (3.4-5.0); ALBUMIN/GLOBULIN RATIO 0.8 (1.1-1.5); ALKALINE PHOSPHATASE 103 IU/L (46-116); ANION GAP 2 (8-16); ASPARTATE AMINO TRANSFERASE 17 U/L (10-37); BILIRUBIN,TOTAL 0.3 MG/DL (0.1-1.0); BLOOD UREA NITROGEN 20 MG/DL (7-18); BUN/CREATININE RATIO 28.6 (6.6-38.0); CALCIUM 7.6 MG/DL (8.5-10.1); CHLORIDE 108 MMOL/L (99-107); GLUCOSE 113 MG/DL (70-104); MAGNESIUM 2.3 MG/DL (1.5-2.4); PHOSPHORUS 3.3 MG/DL (2.3-4.5); POTASSIUM 4.2 MMOL/L (3.5-5.1); SODIUM 146 MMOL/L (135-145); TOTAL CARBON DIOXIDE 36.4 MMOL/L (24-32); TOTAL PROTEIN 5.4 G/DL (6.4-8.2); eGFR 87 ML/MIN
[2017-04-11 07:00] VITALS: BP 122/78
[2017-04-11] MEDS: cefTRIAXone 1g/NS 100ml IVPB 100 ML IV SCH (07:42)
[2017-04-11] MEDS: famotidine/PF 10 mg/ml inj IV SCH (07:42)
[2017-04-11] MEDS: lactobacillus rhamnosus 10,000 MMU CELLS/CAPSULE PO SCH (07:43)
[2017-04-11] MEDS: methylPREDNISolone sod succ 125mg/2ml vial IV SCH (07:43)
[2017-04-11] MEDS: docusate sod 100mg capsule PO SCH (07:43)
[2017-04-11] MEDS: furosemide 40mg/4ml inj IV SCH (07:43)
[2017-04-11] MEDS: atorvastatin 20mg tablet PO SCH (07:43)
[2017-04-11] MEDS: mirtazapine 15mg tablet PO SCH (07:44)
[2017-04-11] MEDS: aspirin 325mg tablet, delayed-release (Ecotrin) PO SCH (07:44)
[2017-04-11] MEDS: clonazePAM 1mg tablet PO SCH ×2 (07:44→13:00)
[2017-04-11] MEDS: UMECLIDINIUM BROMIDE IH SCH (08:00)
[2017-04-11] MEDS: enoxaparin 40mg/0.4ml syringe SUBCUT SCH (08:01)
[2017-04-11] MEDS ORDERED: VANCOMYCIN LEVEL IV NR (09:30)
[2017-04-11] MEDS ORDERED: ALPRAZolam 0.25mg tablet PO PRN (10:10)
[2017-04-11] MEDS ORDERED: LEVO500T2 PO (10:11)
[2017-04-11 11:10] LABS: ABG BASE EXCESS 5.4 mmol/L (-2.0-3.0); ABG OXYGEN SATURATION 92.4 % (95-98); ABG PCO2 (T) 44.1 mmHg (32.0-45.0); ABG PO2 (T) 64.3 mmHg (83-108); ALLEN'S TEST Negative; FCOHb 0.4 % (0.5-1.5); FLOW 2 L/min; FMetHb 0.1 % (0.3-1.12); FO2Hb 91.9 % (94-100); TOTAL HEMOGLOBIN 10.8 G/dl (12.0-16.0)
[2017-04-11] MEDS ORDERED: famotidine 20mg tablet PO SCH (20:00)
== END 2017-04-11 16:30 | disposition home health service (06) | DRG 208 ==
LOC: ER 16:52 → ED HOLD 18:53 → ICU 2S 20:23 → MED 3N 04-10 15:00
PROVIDERS: ADMIT Internal Medicine Critical Care Medicine; ATTEND Internal Medicine
PROC: 5A1935Z Respiratory Ventilation, Less than 24 Consecutive Hours (ICD-10-PCS; principal; 2017-04-08)
PROC: 0BH17EZ Insertion of Endotracheal Airway into Trachea, Via Natural or Artificial Opening (ICD-10-PCS; 2017-04-08)
PROC: 02HV33Z Insertion of Infusion Device into Superior Vena Cava, Percutaneous Approach (ICD-10-PCS; 2017-04-08)
DX: J96.20 Acute and chronic respiratory failure, unspecified whether with hypoxia or hypercapnia (principal); I50.33 Acute on chronic diastolic (congestive) heart failure; J18.1 Lobar pneumonia, unspecified organism; I11.0 Hypertensive heart disease with heart failure; J44.0 Chronic obstructive pulmonary disease with (acute) lower respiratory infection; J44.1 Chronic obstructive pulmonary disease with (acute) exacerbation; D64.9 Anemia, unspecified; E78.5 Hyperlipidemia, unspecified; F12.90 Cannabis use, unspecified, uncomplicated; K21.9 Gastro-esophageal reflux disease without esophagitis; G89.4 Chronic pain syndrome; F32.9 Major depressive disorder, single episode, unspecified; F41.9 Anxiety disorder, unspecified; Z96.643 Presence of artificial hip joint, bilateral; Z98.891 History of uterine scar from previous surgery; Z88.8 Allergy status to other drugs, medicaments and biological substances; Z79.899 Other long term (current) drug therapy; Z79.01 Long term (current) use of anticoagulants; Z79.82 Long term (current) use of aspirin; Z87.891 Personal history of nicotine dependence
CPT/HCPCS: 36415; 36600; 70450; 71045; 80053; 80202; 81001; 82803; 83735; 83880; 84100; 84132; 84145; 84484; 85018; 85025; 85610; 85730; 87040; 87070; 87077; 87186; 87502; 87503; 93005; 94002; 94003; 94640; 94760; 96365; 96375; 97116; 97161; 97530; 99291; A6213; A7015; C1751; C1758; J0696; J1100; J1650; J1940; J1956; J2250; J2704; J2930; J3370; J3490; J7030

== ENCOUNTER 2017-04-19 16:51 | Inpatient (IN) | payer MEDICARE, MEDICAID ==
[~2017-04-19] VITALS: Ht 162.6 cm; Wt 97.0 kg
[~2017-04-19 16:51] MED LIST changes: +LEVO500T2 PO; -etomidate 2mg/ml inj. ONE; -rocuronium 10mg/ml inj IV ONE; -sod chloride 0.9% 10ml flush syringe IV ONE
[2017-04-19] MEDS ORDERED: ipratropium/albuterol 3ml nebule NEB ONE (17:15)
[2017-04-19] MEDS ORDERED: methylPREDNISolone sod succ 125mg/2ml vial IV ONE ×2 (17:15→20:00)
[2017-04-19 17:41] LABS: ABG BASE EXCESS 12.4 mmol/L (-2.0-3.0); ABG HCO3 43.1 mmol/L (22.0-26.0); ABG OXYGEN SATURATION 91.9 % (95-98); ABG PCO2 (T) 104.5 mmHg (32.0-45.0); ABG PH (T) 7.233 (7.350-7.450); ABG PO2 (T) 69.7 mmHg (83-108); ALLEN'S TEST Positive; FCOHb 3.3 % (0.5-1.5); FLOW 3 L/min; FMetHb 0.1 % (0.3-1.12); FO2Hb 88.8 % (94-100); TOTAL HEMOGLOBIN 10.5 G/dl (12.0-16.0)
[2017-04-19 17:45] LABS: BASOPHILS # (AUTO) 0.1 X10'3 (0-0.2); BASOPHILS % (AUTO) 0.6 % (0-1); EOSINOPHILS # (AUTO) 0.2 X10'3 (0-0.9); EOSINOPHILS % (AUTO) 1.9 % (0-6); HEMATOCRIT 31.3 % (35.0-45.0); HEMOGLOBIN 9.6 g/dl (12.0-16.0); LYMPHOCYTES # (AUTO) 1.5 X10'3 (1.1-4.8); LYMPHOCYTES % (AUTO) 12.4 % (21-51); MEAN CORPUSCULAR HEMOGLOBIN 24.1 PG (27.0-31.0); MEAN CORPUSCULAR HGB CONC 30.5 % (33.0-36.5); MEAN CORPUSCULAR VOLUME 78.9 FL (78-98); MEAN PLATELET VOLUME 6.9 FL (7.4-10.4); MONOCYTES # (AUTO) 0.8 X10'3 (0-0.9); MONOCYTES % (AUTO) 6.6 % (2-12); NEUTROPHILS # (AUTO) 9.2 X10'3 (1.8-7.7); NEUTROPHILS % (AUTO) 78.5 % (42-75); PLATELET COUNT 256 X10'3 (140-440); RED BLOOD COUNT 3.97 X10'6 (4.20-5.60); RED CELL DISTRIBUTION WIDTH 21.1 % (11.5-14.5); WHITE BLOOD COUNT 11.7 X10'3 (4.5-11.0)
[2017-04-19] MEDS: albuterol 2.5 MG/3 ML nebule CONTNEB PRN (17:53)
[2017-04-19 18:01] LABS: INR 1.1 INR; PARTIAL THROMBOPLASTIN TIME 28 SECONDS (22-32); PROTHROMBIN TIME 10.9 SECONDS (9.0-12.0)
[2017-04-19 18:07] LABS: ALANINE AMINOTRANSFERASE 21 U/L (12-78); ALBUMIN/GLOBULIN RATIO 0.9 (1.1-1.5); ALKALINE PHOSPHATASE 128 IU/L (46-116); ANION GAP 1 (8-16); ASPARTATE AMINO TRANSFERASE 17 U/L (10-37); BILIRUBIN,TOTAL 0.4 MG/DL (0.1-1.0); BLOOD UREA NITROGEN 20 MG/DL (7-18); CALCIUM 7.8 MG/DL (8.5-10.1); CHLORIDE 97 MMOL/L (99-107); GLUCOSE 107 MG/DL (70-104); POTASSIUM 4.1 MMOL/L (3.5-5.1); SODIUM 138 MMOL/L (135-145); TOTAL PROTEIN 6.5 G/DL (6.4-8.2); eGFR 74 ML/MIN
[2017-04-19] MEDS ORDERED: CefTRIAXone 2gm/NS 100ml IVPB 100 ML IV ONE (18:45)
[2017-04-19] MEDS: K, MAG and/or Phos replacement - Verify level? MC SCH (18:45)
[2017-04-19] MEDS ORDERED: potassium Cl 20 mEq SR tablet PO PRN ×2 (18:45)
[2017-04-19] MEDS ORDERED: ondansetron/PF 4mg/2ml inj IV PRN (18:45)
[2017-04-19] MEDS ORDERED: acetaminophen 325mg tablet PO PRN ×2 (18:45)
[2017-04-19] MEDS ORDERED: morphine 5 MG/ML injection IV PRN (18:45)
[2017-04-19] MEDS ORDERED: magnesium hydroxide 30ml (MOM) UD suspension PO PRN (18:45)
[2017-04-19] MEDS ORDERED: azithromycin 250mg tablet PO ONE (18:45)
[2017-04-19 19:06] LABS: ABG BASE EXCESS 10.4 mmol/L (-2.0-3.0); ABG OXYGEN SATURATION 94.1 % (95-98); ABG PCO2 (T) 74.8 mmHg (32.0-45.0); ABG PO2 (T) 69.2 mmHg (83-108); ALLEN'S TEST Positive; FCOHb 3.3 % (0.5-1.5); FMetHb 0.1 % (0.3-1.12); FO2Hb 90.9 % (94-100); MINUTE VOLUME 21 L/min; PATIENT TEMPERATURE 35.9; RESPIRATORY RATE 20 b/min; RESPIRATORY RATE (OBSERVED) 26 b/min; TOTAL HEMOGLOBIN 10.6 G/dl (12.0-16.0)
[2017-04-19] MEDS: carVEDilol 3.125mg tablet PO SCH (19:24)
[2017-04-19] MEDS: morphine 5 MG/ML injection IV PRN (21:03)
[2017-04-19 21:30] VITALS: BP 127/86
[2017-04-19 22:00] VITALS: BP 91/58
[2017-04-19] MEDS: clonazePAM 1mg tablet PO SCH (22:22)
[2017-04-19] MEDS: sennosides 8.6mg tablet PO SCH (22:22)
[2017-04-19] MEDS: ROPINIRole 0.25mg tablet PO SCH (22:23)
[2017-04-19] MEDS: mirtazapine 15mg tablet PO SCH (22:23)
[2017-04-19 23:00] VITALS: BP 84/51
[2017-04-20] VITALS (15 sets, daily range): BP systolic 86–112; BP diastolic 57–71
[2017-04-20] MEDS: morphine 5 MG/ML injection IV PRN (05:04)
[2017-04-20 06:02] LABS: PARTIAL THROMBOPLASTIN TIME 23 SECONDS (22-32); PROTHROMBIN TIME 10.6 SECONDS (9.0-12.0)
[2017-04-20 06:09] LABS: BASOPHILS % (AUTO) 0 % (0-1); EOSINOPHILS # (AUTO) 0.1 X10'3 (0-0.9); EOSINOPHILS % (AUTO) 1.1 % (0-6); HEMATOCRIT 31.9 % (35.0-45.0); HEMOGLOBIN 9.9 g/dl (12.0-16.0); LYMPHOCYTES # (AUTO) 0.6 X10'3 (1.1-4.8); LYMPHOCYTES % (AUTO) 9.7 % (21-51); MEAN CORPUSCULAR HEMOGLOBIN 24.3 PG (27.0-31.0); MEAN CORPUSCULAR VOLUME 78.4 FL (78-98); MEAN PLATELET VOLUME 7.3 FL (7.4-10.4); MONOCYTES % (AUTO) 0.3 % (2-12); NEUTROPHILS # (AUTO) 5.8 X10'3 (1.8-7.7); NEUTROPHILS % (AUTO) 88.9 % (42-75); PLATELET COUNT 230 X10'3 (140-440); RED BLOOD COUNT 4.07 X10'6 (4.20-5.60); RED CELL DISTRIBUTION WIDTH 20.8 % (11.5-14.5); WHITE BLOOD COUNT 6.5 X10'3 (4.5-11.0)
[2017-04-20 06:24] LABS: ALANINE AMINOTRANSFERASE 15 U/L (12-78); ALBUMIN 2.9 G/DL (3.4-5.0); ALBUMIN/GLOBULIN RATIO 0.8 (1.1-1.5); ALKALINE PHOSPHATASE 115 IU/L (46-116); ANION GAP 2 (8-16); ASPARTATE AMINO TRANSFERASE 15 U/L (10-37); BILIRUBIN,TOTAL 0.3 MG/DL (0.1-1.0); BLOOD UREA NITROGEN 13 MG/DL (7-18); BUN/CREATININE RATIO 18.6 (6.6-38.0); CALCIUM 8.3 MG/DL (8.5-10.1); CHLORIDE 99 MMOL/L (99-107); GLUCOSE 136 MG/DL (70-104); PHOSPHORUS 3.8 MG/DL (2.3-4.5); POTASSIUM 4.8 MMOL/L (3.5-5.1); SODIUM 141 MMOL/L (135-145); TOTAL CARBON DIOXIDE 39.7 MMOL/L (24-32); TOTAL PROTEIN 6.5 G/DL (6.4-8.2); eGFR 87 ML/MIN
[2017-04-20 07:21] LABS: ABG BASE EXCESS 12.5 mmol/L (-2.0-3.0); ABG HCO3 39.3 mmol/L (22.0-26.0); ABG OXYGEN SATURATION 96.2 % (95-98); ABG PH (T) 7.399 (7.350-7.450); ABG PO2 (T) 83.6 mmHg (83-108); ALLEN'S TEST Positive; FCOHb 1.3 % (0.5-1.5); FMetHb 0.1 % (0.3-1.12); FO2Hb 94.9 % (94-100); MINUTE VOLUME 19 L/min; RESPIRATORY RATE 20 b/min; RESPIRATORY RATE (OBSERVED) 21 b/min; TOTAL HEMOGLOBIN 9.5 G/dl (12.0-16.0)
[2017-04-20] MEDS: K, MAG and/or Phos replacement - Verify level? MC SCH (08:00)
[2017-04-20] MEDS: clonazePAM 1mg tablet PO SCH ×3 (08:24→20:47)
[2017-04-20] MEDS: aspirin 325mg tablet, delayed-release (Ecotrin) PO SCH (08:24)
[2017-04-20] MEDS: ROPINIRole 0.25mg tablet PO SCH ×2 (08:25→20:49)
[2017-04-20] MEDS: carVEDilol 3.125mg tablet PO SCH ×2 (08:26→20:54)
[2017-04-20] MEDS: oxyCODONE/APAP 5-325mg tablet PO PRN ×2 (14:01→22:34)
[2017-04-20] MEDS: ipratropium/albuterol 3ml nebule IH PRN ×2 (18:42→22:59)
[2017-04-20] MEDS: sennosides 8.6mg tablet PO SCH (20:48)
[2017-04-20] MEDS: mirtazapine 15mg tablet PO SCH (20:48)
[2017-04-21] MEDS: temazepam 15mg capsule PO PRN (02:20)
[2017-04-21 03:00] VITALS: BP 103/60
[2017-04-21 05:36] LABS: INR 1.1 INR; PARTIAL THROMBOPLASTIN TIME 24 SECONDS (22-32); PROTHROMBIN TIME 11.6 SECONDS (9.0-12.0)
[2017-04-21 05:43] LABS: BASOPHILS % (AUTO) 0 % (0-1); EOSINOPHILS # (AUTO) 0.1 X10'3 (0-0.9); EOSINOPHILS % (AUTO) 1.5 % (0-6); HEMATOCRIT 25.9 % (35.0-45.0); LYMPHOCYTES # (AUTO) 1.9 X10'3 (1.1-4.8); LYMPHOCYTES % (AUTO) 24.1 % (21-51); MEAN CORPUSCULAR HGB CONC 30.9 % (33.0-36.5); MEAN CORPUSCULAR VOLUME 77.5 FL (78-98); MEAN PLATELET VOLUME 7.1 FL (7.4-10.4); MONOCYTES # (AUTO) 0.6 X10'3 (0-0.9); MONOCYTES % (AUTO) 7.8 % (2-12); NEUTROPHILS # (AUTO) 5.1 X10'3 (1.8-7.7); NEUTROPHILS % (AUTO) 66.6 % (42-75); PLATELET COUNT 216 X10'3 (140-440); RED BLOOD COUNT 3.34 X10'6 (4.20-5.60); RED CELL DISTRIBUTION WIDTH 20.6 % (11.5-14.5); WHITE BLOOD COUNT 7.7 X10'3 (4.5-11.0)
[2017-04-21 05:57] LABS: ALANINE AMINOTRANSFERASE 21 U/L (12-78); ALBUMIN 2.3 G/DL (3.4-5.0); ALBUMIN/GLOBULIN RATIO 0.8 (1.1-1.5); ALKALINE PHOSPHATASE 89 IU/L (46-116); ANION GAP 2 (8-16); ASPARTATE AMINO TRANSFERASE 15 U/L (10-37); BILIRUBIN,TOTAL 0.3 MG/DL (0.1-1.0); BLOOD UREA NITROGEN 14 MG/DL (7-18); BUN/CREATININE RATIO 17.5 (6.6-38.0); CALCIUM 7.9 MG/DL (8.5-10.1); CHLORIDE 104 MMOL/L (99-107); GLUCOSE 128 MG/DL (70-104); MAGNESIUM 1.9 MG/DL (1.5-2.4); PHOSPHORUS 2.6 MG/DL (2.3-4.5); POTASSIUM 4.1 MMOL/L (3.5-5.1); SODIUM 144 MMOL/L (135-145); TOTAL CARBON DIOXIDE 37.6 MMOL/L (24-32); TOTAL PROTEIN 5.1 G/DL (6.4-8.2); eGFR 74 ML/MIN
[2017-04-21 06:00] VITALS: BP 115/70
[2017-04-21] MEDS: aspirin 325mg tablet, delayed-release (Ecotrin) PO SCH (07:35)
[2017-04-21] MEDS: ROPINIRole 0.25mg tablet PO SCH ×2 (07:35→20:15)
[2017-04-21] MEDS: clonazePAM 1mg tablet PO SCH ×3 (07:35→20:15)
[2017-04-21] MEDS: oxyCODONE/APAP 5-325mg tablet PO PRN ×3 (07:36→22:14)
[2017-04-21] MEDS: carVEDilol 3.125mg tablet PO SCH ×2 (07:36→20:14)
[2017-04-21] MEDS: K, MAG and/or Phos replacement - Verify level? MC SCH (08:00)
[2017-04-21 11:00] VITALS: BP 109/59
[2017-04-21 15:00] VITALS: BP 136/80
[2017-04-21 18:30] VITALS: BP 126/62
[2017-04-21] MEDS: ipratropium/albuterol 3ml nebule IH PRN (19:03)
[2017-04-21] MEDS: mirtazapine 15mg tablet PO SCH (20:15)
[2017-04-21] MEDS: sennosides 8.6mg tablet PO SCH (20:15)
[2017-04-21 22:00] VITALS: BP 110/72
[2017-04-22 02:00] VITALS: BP 121/81
[2017-04-22 06:52] LABS: BASOPHILS # (AUTO) 0.1 X10'3 (0-0.2); BASOPHILS % (AUTO) 1.2 % (0-1); EOSINOPHILS # (AUTO) 0.1 X10'3 (0-0.9); HEMOGLOBIN 9.4 g/dl (12.0-16.0); LYMPHOCYTES # (AUTO) 1.4 X10'3 (1.1-4.8); LYMPHOCYTES % (AUTO) 24.7 % (21-51); MEAN CORPUSCULAR HEMOGLOBIN 23.8 PG (27.0-31.0); MEAN CORPUSCULAR HGB CONC 30.4 % (33.0-36.5); MEAN CORPUSCULAR VOLUME 78.2 FL (78-98); MEAN PLATELET VOLUME 6.5 FL (7.4-10.4); MONOCYTES # (AUTO) 0.4 X10'3 (0-0.9); MONOCYTES % (AUTO) 7.2 % (2-12); NEUTROPHILS # (AUTO) 3.8 X10'3 (1.8-7.7); NEUTROPHILS % (AUTO) 64.9 % (42-75); PLATELET COUNT 215 X10'3 (140-440); RED BLOOD COUNT 3.96 X10'6 (4.20-5.60); RED CELL DISTRIBUTION WIDTH 21.1 % (11.5-14.5); WHITE BLOOD COUNT 5.9 X10'3 (4.5-11.0)
[2017-04-22 06:59] LABS: INR 1.1 INR; PARTIAL THROMBOPLASTIN TIME 24 SECONDS (22-32); PROTHROMBIN TIME 11.7 SECONDS (9.0-12.0)
[2017-04-22 07:00] VITALS: BP 112/73
[2017-04-22 07:07] LABS: ALANINE AMINOTRANSFERASE 22 U/L (12-78); ALBUMIN 2.7 G/DL (3.4-5.0); ALBUMIN/GLOBULIN RATIO 0.9 (1.1-1.5); ALKALINE PHOSPHATASE 96 IU/L (46-116); ANION GAP 3 (8-16); ASPARTATE AMINO TRANSFERASE 20 U/L (10-37); BILIRUBIN,TOTAL 0.4 MG/DL (0.1-1.0); BLOOD UREA NITROGEN 9 MG/DL (7-18); BUN/CREATININE RATIO 12.9 (6.6-38.0); CALCIUM 8.2 MG/DL (8.5-10.1); CHLORIDE 108 MMOL/L (99-107); GLUCOSE 121 MG/DL (70-104); MAGNESIUM 2.1 MG/DL (1.5-2.4); PHOSPHORUS 4.6 MG/DL (2.3-4.5); POTASSIUM 4.3 MMOL/L (3.5-5.1); SODIUM 147 MMOL/L (135-145); TOTAL PROTEIN 5.7 G/DL (6.4-8.2); eGFR 87 ML/MIN
[2017-04-22] MEDS: K, MAG and/or Phos replacement - Verify level? MC SCH (08:00)
[2017-04-22] MEDS: ipratropium/albuterol 3ml nebule IH PRN (08:26)
[2017-04-22] MEDS: aspirin 325mg tablet, delayed-release (Ecotrin) PO SCH (08:27)
[2017-04-22] MEDS: clonazePAM 1mg tablet PO SCH ×3 (08:27→20:11)
[2017-04-22] MEDS: carVEDilol 3.125mg tablet PO SCH ×2 (08:27→20:11)
[2017-04-22] MEDS: ROPINIRole 0.25mg tablet PO SCH ×2 (08:28→20:11)
[2017-04-22] MEDS: oxyCODONE/APAP 5-325mg tablet PO PRN ×2 (08:43→18:48)
[2017-04-22 11:00] VITALS: BP 109/51
[2017-04-22] MEDS: albuterol 2.5 MG/3 ML nebule CONTNEB PRN (14:26)
[2017-04-22 15:00] VITALS: BP 123/75
[2017-04-22] MEDS ORDERED: morphine 2 MG/ML inj. syringe IV PRN (15:00)
[2017-04-22] MEDS ORDERED: ipratropium/albuterol 3ml nebule NEB PRN (17:30)
[2017-04-22 18:30] VITALS: BP 127/78
[2017-04-22] MEDS: mirtazapine 15mg tablet PO SCH (20:11)
[2017-04-22] MEDS: sennosides 8.6mg tablet PO SCH (20:11)
[2017-04-22] MEDS: temazepam 15mg capsule PO PRN (20:51)
[2017-04-22] MEDS: ipratropium/albuterol 3ml nebule NEB SCH (21:02)
[2017-04-22 22:00] VITALS: BP 116/75
[2017-04-23 02:00] VITALS: BP 131/78
[2017-04-23] MEDS: ipratropium/albuterol 3ml nebule NEB SCH ×3 (02:57→14:31)
[2017-04-23] MEDS: oxyCODONE/APAP 5-325mg tablet PO PRN ×2 (03:04→12:37)
[2017-04-23 05:15] LABS: BASOPHILS % (AUTO) 0.3 % (0-1); EOSINOPHILS # (AUTO) 0.2 X10'3 (0-0.9); EOSINOPHILS % (AUTO) 3.5 % (0-6); HEMATOCRIT 29.4 % (35.0-45.0); HEMOGLOBIN 9.1 g/dl (12.0-16.0); LYMPHOCYTES # (AUTO) 1.3 X10'3 (1.1-4.8); LYMPHOCYTES % (AUTO) 24.1 % (21-51); MEAN CORPUSCULAR HEMOGLOBIN 23.6 PG (27.0-31.0); MEAN CORPUSCULAR HGB CONC 30.8 % (33.0-36.5); MEAN CORPUSCULAR VOLUME 76.6 FL (78-98); MEAN PLATELET VOLUME 6.7 FL (7.4-10.4); MONOCYTES # (AUTO) 0.4 X10'3 (0-0.9); MONOCYTES % (AUTO) 6.7 % (2-12); NEUTROPHILS # (AUTO) 3.5 X10'3 (1.8-7.7); NEUTROPHILS % (AUTO) 65.4 % (42-75); PLATELET COUNT 196 X10'3 (140-440); RED BLOOD COUNT 3.84 X10'6 (4.20-5.60); RED CELL DISTRIBUTION WIDTH 21.2 % (11.5-14.5); WHITE BLOOD COUNT 5.3 X10'3 (4.5-11.0)
[2017-04-23 05:30] LABS: INR 1.2 INR; PARTIAL THROMBOPLASTIN TIME 25 SECONDS (22-32); PROTHROMBIN TIME 11.9 SECONDS (9.0-12.0)
[2017-04-23 05:59] LABS: ALANINE AMINOTRANSFERASE 13 U/L (12-78); ALBUMIN 2.6 G/DL (3.4-5.0); ALBUMIN/GLOBULIN RATIO 0.9 (1.1-1.5); ALKALINE PHOSPHATASE 101 IU/L (46-116); ANION GAP 3 (8-16); ASPARTATE AMINO TRANSFERASE 15 U/L (10-37); BILIRUBIN,TOTAL 0.4 MG/DL (0.1-1.0); BLOOD UREA NITROGEN 11 MG/DL (7-18); BUN/CREATININE RATIO 18.3 (6.6-38.0); CHLORIDE 110 MMOL/L (99-107); GLUCOSE 82 MG/DL (70-104); PHOSPHORUS 4.9 MG/DL (2.3-4.5); POTASSIUM 4.4 MMOL/L (3.5-5.1); SODIUM 146 MMOL/L (135-145); TOTAL CARBON DIOXIDE 32.9 MMOL/L (24-32); TOTAL PROTEIN 5.4 G/DL (6.4-8.2); eGFR > 90 ML/MIN
[2017-04-23 07:00] VITALS: BP 131/76
[2017-04-23] MEDS: ROPINIRole 0.25mg tablet PO SCH (07:26)
[2017-04-23] MEDS: aspirin 325mg tablet, delayed-release (Ecotrin) PO SCH (07:26)
[2017-04-23] MEDS: clonazePAM 1mg tablet PO SCH ×2 (07:26→12:34)
[2017-04-23] MEDS: carVEDilol 3.125mg tablet PO SCH (07:26)
[2017-04-23] MEDS: K, MAG and/or Phos replacement - Verify level? MC SCH (08:00)
[2017-04-23 11:00] VITALS: BP 139/73
[2017-04-23 15:00] VITALS: BP 123/81
== END 2017-04-23 19:30 | disposition home health service (06) | DRG 189 ==
LOC: ER 16:51 → ED HOLD 18:43 → EDBEDREQTM 20:30 → ICU 2S 21:32 → PCU 3S 04-20 12:04
PROVIDERS: ADMIT Internal Medicine Critical Care Medicine; ATTEND Internal Medicine Critical Care Medicine
PROC: 5A09457 Assistance with Respiratory Ventilation, 24-96 Consecutive Hours, Continuous Positive Airway Pressure (ICD-10-PCS; principal; 2017-04-19)
DX: J96.21 Acute and chronic respiratory failure with hypoxia (principal); J44.1 Chronic obstructive pulmonary disease with (acute) exacerbation; I50.9 Heart failure, unspecified; Z99.81 Dependence on supplemental oxygen; J96.22 Acute and chronic respiratory failure with hypercapnia; F17.200 Nicotine dependence, unspecified, uncomplicated; I25.2 Old myocardial infarction; Z95.5 Presence of coronary angioplasty implant and graft; Z79.899 Other long term (current) drug therapy; Z88.8 Allergy status to other drugs, medicaments and biological substances
CPT/HCPCS: 36415; 36600; 71045; 80053; 82803; 82948; 83605; 83735; 83880; 84100; 84145; 85018; 85025; 85610; 85730; 87040; 87070; 87502; 87503; 93005; 94640; 94660; 94760; 96374; 99285; A4315; A6213; J0696; J2405; J2930

== ENCOUNTER 2017-04-24 15:33 | Inpatient (IN) | payer MEDICARE, MEDICAID ==
[~2017-04-24] VITALS: Ht 175.3 cm; Wt 95.3 kg
[~2017-04-24 15:33] MED LIST changes: -LEVO500T2 PO
[2017-04-24] MEDS ORDERED: magnesium 2GM in 50ml NS 50 ML IV ONE (15:40)
[2017-04-24] MEDS ORDERED: methylPREDNISolone sod succ 125mg/2ml vial IV ONE (15:40)
[2017-04-24] MEDS ORDERED: albuterol 2.5 MG/3 ML nebule CONTNEB PRN (15:40)
[2017-04-24 15:56] LABS: ABG BASE EXCESS 2.8 mmol/L (-2.0-3.0); ABG HCO3 33.4 mmol/L (22.0-26.0); ABG OXYGEN SATURATION 98.7 % (95-98); ABG PCO2 (T) 89.3 mmHg (32.0-45.0); ABG PH (T) 7.188 (7.350-7.450); ABG PO2 (T) 178.2 mmHg (83-108); FCOHb 1.3 % (0.5-1.5); FMetHb 0.2 % (0.3-1.12); FO2Hb 97.2 % (94-100); PATIENT TEMPERATURE 36.5; RESPIRATORY RATE 20 b/min; RESPIRATORY RATE (OBSERVED) 36 b/min; TOTAL HEMOGLOBIN 11.4 G/dl (12.0-16.0)
[2017-04-24 15:58] LABS: BASOPHILS % (AUTO) 0.1 % (0-1); EOSINOPHILS # (AUTO) 0.2 X10'3 (0-0.9); EOSINOPHILS % (AUTO) 1.7 % (0-6); HEMOGLOBIN 10.6 g/dl (12.0-16.0); LYMPHOCYTES # (AUTO) 1.6 X10'3 (1.1-4.8); LYMPHOCYTES % (AUTO) 15.1 % (21-51); MEAN CORPUSCULAR HEMOGLOBIN 23.5 PG (27.0-31.0); MEAN CORPUSCULAR HGB CONC 30.2 % (33.0-36.5); MEAN PLATELET VOLUME 7.1 FL (7.4-10.4); MONOCYTES # (AUTO) 0.3 X10'3 (0-0.9); MONOCYTES % (AUTO) 2.5 % (2-12); NEUTROPHILS # (AUTO) 8.6 X10'3 (1.8-7.7); NEUTROPHILS % (AUTO) 80.6 % (42-75); PLATELET COUNT 232 X10'3 (140-440); RED BLOOD COUNT 4.49 X10'6 (4.20-5.60); RED CELL DISTRIBUTION WIDTH 21.6 % (11.5-14.5); WHITE BLOOD COUNT 10.7 X10'3 (4.5-11.0)
[2017-04-24] MEDS ORDERED: LORazepam 2 mg/ml vial IV ONE (16:00)
[2017-04-24 16:07] LABS: ANISOCYTOSIS 3+; HYPOCHROMASIA 1+; PLATELET ESTIMATE NORMAL; SCHISTOCYTES FEW
[2017-04-24 16:08] LABS: STOMATOCYTES 1+
[2017-04-24 16:23] LABS: ALANINE AMINOTRANSFERASE 15 U/L (12-78); ALBUMIN 3.3 G/DL (3.4-5.0); ALBUMIN/GLOBULIN RATIO 0.9 (1.1-1.5); ALKALINE PHOSPHATASE 156 IU/L (46-116); ANION GAP 5 (8-16); ASPARTATE AMINO TRANSFERASE 16 U/L (10-37); BILIRUBIN,TOTAL 0.4 MG/DL (0.1-1.0); BLOOD UREA NITROGEN 8 MG/DL (7-18); CALCIUM 8.3 MG/DL (8.5-10.1); CHLORIDE 109 MMOL/L (99-107); CREATININE 0.57 MG/DL (0.40-0.90); GLUCOSE 140 MG/DL (70-104); SODIUM 148 MMOL/L (135-145); TOTAL CARBON DIOXIDE 34.3 MMOL/L (24-32); TOTAL PROTEIN 6.9 G/DL (6.4-8.2); eGFR > 90 ML/MIN
[2017-04-24] MEDS ORDERED: succinylcholine 20mg/ml inj IV ONE (16:25)
[2017-04-24] MEDS ORDERED: fentaNYL/PF 50MCG/1 ML 2ML syringe IV ONE (16:25)
[2017-04-24] MEDS ORDERED: normal saline 1000ML IV soln IVB ONE (16:25)
[2017-04-24] MEDS ORDERED: etomidate 2mg/ml inj. IV ONE (16:25)
[2017-04-24] MEDS ORDERED: propofol 1000mg/100ml bottle 100 ML IV SCH (16:30)
[2017-04-24 18:00] LABS: ABG BASE EXCESS 3.4 mmol/L (-2.0-3.0); ABG HCO3 31.1 mmol/L (22.0-26.0); ABG OXYGEN SATURATION 90.1 % (95-98); ABG PCO2 (T) 62.9 mmHg (32.0-45.0); ABG PH (T) 7.309 (7.350-7.450); ABG PO2 (T) 59.5 mmHg (83-108); FCOHb 1.4 % (0.5-1.5); FMetHb 0.1 % (0.3-1.12); FO2Hb 88.7 % (94-100); PATIENT TEMPERATURE 36.5; PEEP 5 cm H2O; RESPIRATORY RATE 18 b/min; TIDAL VOLUME 400 mL
[2017-04-24] MEDS ORDERED: potassium Cl 40MEQ/NS 500ml 500 ML IV PRN ×2 (19:55)
[2017-04-24] MEDS: K, MAG and/or Phos replacement - Verify level? MC SCH (19:55)
[2017-04-24] MEDS ORDERED: potassium Cl 20 mEq SR tablet PO PRN ×2 (19:55)
[2017-04-24] MEDS ORDERED: acetaminophen 325mg tablet PO PRN ×2 (19:55)
[2017-04-24] MEDS ORDERED: ondansetron/PF 4mg/2ml inj IV PRN (19:55)
[2017-04-24] MEDS ORDERED: magnesium hydroxide 30ml (MOM) UD suspension PO PRN (19:55)
[2017-04-24] MEDS: naloxone 2mg/2ml inj 2 MG in normal saline 500ml IV soln 498 ML IV SCH ×2 (20:25→21:36)
[2017-04-24] MEDS: normal saline 1000ml 1,000 ML IV SCH (20:28)
[2017-04-24 20:36] VITALS: BP 116/82
[2017-04-24 21:00] VITALS: BP 113/77
[2017-04-24 22:00] VITALS: BP 110/79
[2017-04-24 23:00] VITALS: BP 110/81
[2017-04-25] VITALS (18 sets, daily range): BP systolic 94–129; BP diastolic 44–78
[2017-04-25 01:21] LABS: ABG BASE EXCESS 5.7 mmol/L (-2.0-3.0); ABG HCO3 30.4 mmol/L (22.0-26.0); ABG OXYGEN SATURATION 94.1 % (95-98); ABG PCO2 (T) 46.5 mmHg (32.0-45.0); ABG PH (T) 7.436 (7.350-7.450); ALLEN'S TEST Positive; FCOHb 0.7 % (0.5-1.5); FMetHb 0.2 % (0.3-1.12); FO2Hb 93.3 % (94-100); MINUTE VOLUME 12 L/min; PATIENT TEMPERATURE 37.9; PEEP 5 cm H2O; RESPIRATORY RATE (OBSERVED) 31 b/min; TOTAL HEMOGLOBIN 10.4 G/dl (12.0-16.0)
[2017-04-25 05:10] LABS: BASOPHILS % (AUTO) 0 % (0-1); EOSINOPHILS # (AUTO) 0.1 X10'3 (0-0.9); EOSINOPHILS % (AUTO) 1.7 % (0-6); HEMATOCRIT 29.7 % (35.0-45.0); HEMOGLOBIN 9.2 g/dl (12.0-16.0); LYMPHOCYTES # (AUTO) 0.9 X10'3 (1.1-4.8); LYMPHOCYTES % (AUTO) 16.6 % (21-51); MEAN CORPUSCULAR HEMOGLOBIN 23.8 PG (27.0-31.0); MEAN CORPUSCULAR HGB CONC 30.8 % (33.0-36.5); MEAN CORPUSCULAR VOLUME 77.2 FL (78-98); MEAN PLATELET VOLUME 7.2 FL (7.4-10.4); MONOCYTES # (AUTO) 0.1 X10'3 (0-0.9); MONOCYTES % (AUTO) 1.6 % (2-12); NEUTROPHILS # (AUTO) 4.5 X10'3 (1.8-7.7); NEUTROPHILS % (AUTO) 80.1 % (42-75); PLATELET COUNT 196 X10'3 (140-440); RED BLOOD COUNT 3.85 X10'6 (4.20-5.60); RED CELL DISTRIBUTION WIDTH 20.8 % (11.5-14.5); WHITE BLOOD COUNT 5.7 X10'3 (4.5-11.0)
[2017-04-25 05:27] LABS: ALANINE AMINOTRANSFERASE 19 U/L (12-78); ALBUMIN 2.7 G/DL (3.4-5.0); ALBUMIN/GLOBULIN RATIO 0.8 (1.1-1.5); ALKALINE PHOSPHATASE 103 IU/L (46-116); ANION GAP 3 (8-16); ASPARTATE AMINO TRANSFERASE 13 U/L (10-37); BILIRUBIN,TOTAL 0.4 MG/DL (0.1-1.0); BLOOD UREA NITROGEN 11 MG/DL (7-18); BUN/CREATININE RATIO 20.4 (6.6-38.0); CALCIUM 7.8 MG/DL (8.5-10.1); CHLORIDE 111 MMOL/L (99-107); CREATININE 0.54 MG/DL (0.40-0.90); GLUCOSE 116 MG/DL (70-104); POTASSIUM 4.4 MMOL/L (3.5-5.1); SODIUM 147 MMOL/L (135-145); TOTAL CARBON DIOXIDE 33.4 MMOL/L (24-32); TOTAL PROTEIN 5.9 G/DL (6.4-8.2); eGFR > 90 ML/MIN
[2017-04-25] MEDS ORDERED: pantoprazole 40 MG vial IV SCH (08:00)
[2017-04-25] MEDS: K, MAG and/or Phos replacement - Verify level? MC SCH (08:00)
[2017-04-25] MEDS ORDERED: ipratropium/albuterol 3ml nebule NEB PRN (09:00)
[2017-04-25] MEDS: normal saline 1000ml 1,000 ML IV SCH (09:15)
[2017-04-25] MEDS: enoxaparin 40mg/0.4ml syringe SUBCUT SCH (09:30)
[2017-04-25] MEDS ORDERED: oxyCODONE/APAP 5-325mg tablet PO PRN (11:15)
[2017-04-25] MEDS: clonazePAM 1mg tablet PO SCH ×2 (12:10→20:38)
[2017-04-25] MEDS: ipratropium/albuterol 3ml nebule IH PRN ×2 (13:14→20:22)
[2017-04-25] MEDS: mineral oil/petrolatum ophthal oint EACHEYE SCH (19:29)
[2017-04-25] MEDS ORDERED: famotidine 20mg tablet PO SCH (20:00)
[2017-04-25] MEDS ORDERED: carVEDilol 12.5mg tablet PO SCH (20:00)
[2017-04-25] MEDS: sennosides 8.6mg tablet PO SCH (20:40)
[2017-04-25] MEDS: mirtazapine 15mg tablet PO SCH (20:41)
[2017-04-25] MEDS: lisinopril 2.5mg tablet PO SCH (20:41)
[2017-04-25] MEDS: ROPINIRole 0.25mg tablet PO SCH (20:42)
[2017-04-25] MEDS: carVEDilol 3.125mg tablet PO SCH (20:47)
[2017-04-25] MEDS: naloxone 2mg/2ml inj 2 MG in normal saline 500ml IV soln 498 ML IV SCH (20:50)
[2017-04-25] MEDS: ipratropium/albuterol 3ml nebule NEB SCH (23:26)
[2017-04-26] MEDS: normal saline 1000ml 1,000 ML IV SCH ×2 (00:32→11:55)
[2017-04-26] MEDS: mineral oil/petrolatum ophthal oint EACHEYE SCH ×4 (02:00→19:12)
[2017-04-26 03:00] VITALS: BP 115/69
[2017-04-26] MEDS ORDERED: ipratropium 0.5 MG/2.5ML nebule NEB SCH (03:00)
[2017-04-26] MEDS: ipratropium/albuterol 3ml nebule NEB SCH ×4 (04:54→15:27)
[2017-04-26 06:00] VITALS: BP 132/72
[2017-04-26 06:25] LABS: BASOPHILS % (AUTO) 0.3 % (0-1); EOSINOPHILS # (AUTO) 0.1 X10'3 (0-0.9); EOSINOPHILS % (AUTO) 2.1 % (0-6); HEMATOCRIT 30.8 % (35.0-45.0); HEMOGLOBIN 9.5 g/dl (12.0-16.0); LYMPHOCYTES % (AUTO) 28.4 % (21-51); MEAN CORPUSCULAR HEMOGLOBIN 23.8 PG (27.0-31.0); MEAN CORPUSCULAR HGB CONC 30.7 % (33.0-36.5); MEAN CORPUSCULAR VOLUME 77.4 FL (78-98); MEAN PLATELET VOLUME 7.4 FL (7.4-10.4); MONOCYTES # (AUTO) 0.4 X10'3 (0-0.9); MONOCYTES % (AUTO) 5.6 % (2-12); NEUTROPHILS # (AUTO) 4.4 X10'3 (1.8-7.7); NEUTROPHILS % (AUTO) 63.6 % (42-75); PLATELET COUNT 196 X10'3 (140-440); RED BLOOD COUNT 3.98 X10'6 (4.20-5.60); RED CELL DISTRIBUTION WIDTH 21.3 % (11.5-14.5); WHITE BLOOD COUNT 6.9 X10'3 (4.5-11.0)
[2017-04-26 06:40] LABS: ALANINE AMINOTRANSFERASE 17 U/L (12-78); ALBUMIN 2.9 G/DL (3.4-5.0); ALKALINE PHOSPHATASE 99 IU/L (46-116); ANION GAP 5 (8-16); ASPARTATE AMINO TRANSFERASE 10 U/L (10-37); BILIRUBIN,TOTAL 0.4 MG/DL (0.1-1.0); BLOOD UREA NITROGEN 12 MG/DL (7-18); BUN/CREATININE RATIO 16.7 (6.6-38.0); CALCIUM 7.7 MG/DL (8.5-10.1); CHLORIDE 113 MMOL/L (99-107); CREATININE 0.72 MG/DL (0.40-0.90); GLUCOSE 87 MG/DL (70-104); SODIUM 150 MMOL/L (135-145); TOTAL CARBON DIOXIDE 32.3 MMOL/L (24-32); TOTAL PROTEIN 5.9 G/DL (6.4-8.2); eGFR 84 ML/MIN
[2017-04-26] MEDS: K, MAG and/or Phos replacement - Verify level? MC SCH (08:00)
[2017-04-26] MEDS ORDERED: aspirin 325mg tablet, delayed-release (Ecotrin) PO SCH (08:00)
[2017-04-26] MEDS ORDERED: atorvastatin 20mg tablet PO SCH (08:00)
[2017-04-26] MEDS ORDERED: furosemide 40mg tablet PO SCH (08:00)
[2017-04-26] MEDS ORDERED: famotidine 20mg tablet PO SCH (08:02)
[2017-04-26] MEDS ORDERED: famotidine 20mg tablet PO ONE (08:05)
[2017-04-26] MEDS: clonazePAM 1mg tablet PO SCH ×3 (08:15→20:08)
[2017-04-26] MEDS: ROPINIRole 0.25mg tablet PO SCH ×2 (08:19→20:06)
[2017-04-26] MEDS: enoxaparin 40mg/0.4ml syringe SUBCUT SCH (08:21)
[2017-04-26 11:00] VITALS: BP 119/67
[2017-04-26 15:00] VITALS: BP 129/82
[2017-04-26 19:00] VITALS: BP 121/75
[2017-04-26] MEDS: carVEDilol 3.125mg tablet PO SCH (20:06)
[2017-04-26] MEDS: sennosides 8.6mg tablet PO SCH (20:08)
[2017-04-26] MEDS: lisinopril 2.5mg tablet PO SCH (20:08)
[2017-04-26] MEDS: mirtazapine 15mg tablet PO SCH (20:09)
== END 2017-04-26 20:10 | disposition home health service (06) | DRG 917 ==
LOC: ER 15:34 → ICU 2S 19:24 → CMPBEDREQ 20:50 → PCU 3S 04-25 14:42
PROVIDERS: ADMIT Internal Medicine Critical Care Medicine; ATTEND Internal Medicine Critical Care Medicine
PROC: 0BH17EZ Insertion of Endotracheal Airway into Trachea, Via Natural or Artificial Opening (ICD-10-PCS; principal; 2017-04-24)
PROC: 5A1935Z Respiratory Ventilation, Less than 24 Consecutive Hours (ICD-10-PCS; 2017-04-24)
PROC: 5A09357 Assistance with Respiratory Ventilation, Less than 24 Consecutive Hours, Continuous Positive Airway Pressure (ICD-10-PCS; 2017-04-24)
DX: T40.2X1A Poisoning by other opioids, accidental (unintentional), initial encounter (principal); J96.21 Acute and chronic respiratory failure with hypoxia; I50.32 Chronic diastolic (congestive) heart failure; J96.22 Acute and chronic respiratory failure with hypercapnia; J44.1 Chronic obstructive pulmonary disease with (acute) exacerbation; G89.29 Other chronic pain; M41.9 Scoliosis, unspecified; I25.2 Old myocardial infarction; Z95.5 Presence of coronary angioplasty implant and graft; Z88.6 Allergy status to analgesic agent; Z79.899 Other long term (current) drug therapy; Z79.82 Long term (current) use of aspirin; Z79.51 Long term (current) use of inhaled steroids; Y92.89 Other specified places as the place of occurrence of the external cause
CPT/HCPCS: 36415; 36600; 71045; 80053; 82803; 82948; 83605; 83735; 83880; 84484; 85018; 85025; 87040; 87070; 93005; 94002; 94003; 94640; 94660; 94760; 96365; 96375; 99291; 99292; A6212; A6213; A6449; C1758; C9113; J0330; J1650; J2060; J2310; J2704; J2930; J3010; J3475; J3490; J7030

== ENCOUNTER 2017-05-26 11:12 | Emergency (ER) | payer MEDICARE, MEDICAID ==
[~2017-05-26] VITALS: Ht 162.6 cm; Wt 189.0 kg
[~2017-05-26 11:12] MED LIST changes: -PER5325T PO
[2017-05-26] MEDS ORDERED: ipratropium/albuterol 3ml nebule NEB ONE (12:05)
[2017-05-26] MEDS ORDERED: methylPREDNISolone sod succ 125mg/2ml vial IV ONE (12:05)
[2017-05-26 12:34] LABS: BASOPHILS % (AUTO) 0.6 % (0-1); EOSINOPHILS # (AUTO) 0.2 X10'3 (0-0.9); EOSINOPHILS % (AUTO) 2.4 % (0-6); HEMATOCRIT 37.8 % (35.0-45.0); HEMOGLOBIN 11.2 g/dl (12.0-16.0); LYMPHOCYTES # (AUTO) 1.1 X10'3 (1.1-4.8); LYMPHOCYTES % (AUTO) 15.4 % (21-51); MEAN CORPUSCULAR HEMOGLOBIN 23.4 PG (27.0-31.0); MEAN CORPUSCULAR HGB CONC 29.6 % (33.0-36.5); MEAN CORPUSCULAR VOLUME 79.1 FL (78-98); MEAN PLATELET VOLUME 7.2 FL (7.4-10.4); MONOCYTES # (AUTO) 0.3 X10'3 (0-0.9); MONOCYTES % (AUTO) 3.9 % (2-12); NEUTROPHILS # (AUTO) 5.3 X10'3 (1.8-7.7); NEUTROPHILS % (AUTO) 77.7 % (42-75); PLATELET COUNT 139 X10'3 (140-440); RED BLOOD COUNT 4.78 X10'6 (4.20-5.60); RED CELL DISTRIBUTION WIDTH 21.3 % (11.5-14.5); WHITE BLOOD COUNT 6.8 X10'3 (4.5-11.0)
[2017-05-26 12:58] LABS: ALANINE AMINOTRANSFERASE 16 U/L (12-78); ALBUMIN 3.3 G/DL (3.4-5.0); ALBUMIN/GLOBULIN RATIO 0.9 (1.1-1.5); ALKALINE PHOSPHATASE 94 IU/L (46-116); ANION GAP 2 (8-16); ASPARTATE AMINO TRANSFERASE 13 U/L (10-37); BILIRUBIN,TOTAL 0.3 MG/DL (0.1-1.0); BLOOD UREA NITROGEN 14 MG/DL (7-18); BUN/CREATININE RATIO 26.9 (6.6-38.0); CALCIUM 8.3 MG/DL (8.5-10.1); CHLORIDE 102 MMOL/L (99-107); CREATININE 0.52 MG/DL (0.40-0.90); GLUCOSE 114 MG/DL (70-104); MAGNESIUM 2.1 MG/DL (1.5-2.4); POTASSIUM 4.5 MMOL/L (3.5-5.1); SODIUM 146 MMOL/L (135-145); TOTAL PROTEIN 6.8 G/DL (6.4-8.2); eGFR > 90 ML/MIN
[2017-05-26 12:59] LABS: TOTAL CARBON DIOXIDE 41.6 MMOL/L (24-32)
[2017-05-26] MEDS ORDERED: AZIT-55 PO (13:46)
[2017-05-26] MEDS ORDERED: METH4TAB81 PO (13:46)
[2017-05-26 14:09] VITALS: BP 109/67
== END 2017-05-26 14:12 | disposition home or self-care (01) ==
LOC: ER 11:13
DX: J44.9 Chronic obstructive pulmonary disease, unspecified (principal); E87.2 Acidosis; F11.20 Opioid dependence, uncomplicated; I25.10 Atherosclerotic heart disease of native coronary artery without angina pectoris; I50.9 Heart failure, unspecified; I11.0 Hypertensive heart disease with heart failure; I25.2 Old myocardial infarction; E78.00 Pure hypercholesterolemia, unspecified; G89.29 Other chronic pain; Z79.82 Long term (current) use of aspirin; Z79.899 Other long term (current) drug therapy
CPT/HCPCS: 36415; 71045; 80053; 83735; 83880; 84484; 85025; 93005; 94640; 94760; 96374; 99285; J2930

== ENCOUNTER 2017-05-29 10:09 | Inpatient (IN) | payer MEDICARE, MEDICAID ==
[~2017-05-29] VITALS: Ht 162.6 cm; Wt 85.9 kg
[~2017-05-29 10:09] MED LIST changes: +AZIT-55 PO; +METH4TAB81 PO
[2017-05-29] MEDS ORDERED: methylPREDNISolone sod succ 125mg/2ml vial IV ONE (10:40)
[2017-05-29 10:56] LABS: ABG BASE EXCESS 11.2 mmol/L (-2.0-3.0); ABG HCO3 42.1 mmol/L (22.0-26.0); ABG OXYGEN SATURATION 87.4 % (95-98); ABG PCO2 (T) 98.4 mmHg (32.0-45.0); ABG PH (T) 7.249 (7.350-7.450); ABG PO2 (T) 60.5 mmHg (83-108); FCOHb 1.1 % (0.5-1.5); FLOW 2 L/min; FMetHb 0.1 % (0.3-1.12); FO2Hb 86.4 % (94-100); TOTAL HEMOGLOBIN 12.2 G/dl (12.0-16.0)
[2017-05-29 11:27] LABS: BASOPHILS # (AUTO) 0.1 X10'3 (0-0.2); BASOPHILS % (AUTO) 0.5 % (0-1); D-DIMER 0.98 MG/L FEU (0-0.50); EOSINOPHILS % (AUTO) 0.3 % (0-6); HEMOGLOBIN 11.4 g/dl (12.0-16.0); LYMPHOCYTES # (AUTO) 0.8 X10'3 (1.1-4.8); LYMPHOCYTES % (AUTO) 8.5 % (21-51); MEAN CORPUSCULAR HEMOGLOBIN 23.6 PG (27.0-31.0); MEAN CORPUSCULAR HGB CONC 30.1 % (33.0-36.5); MEAN CORPUSCULAR VOLUME 78.4 FL (78-98); MEAN PLATELET VOLUME 6.9 FL (7.4-10.4); MONOCYTES # (AUTO) 0.3 X10'3 (0-0.9); MONOCYTES % (AUTO) 3.5 % (2-12); NEUTROPHILS % (AUTO) 87.2 % (42-75); PARTIAL THROMBOPLASTIN TIME 23 SECONDS (22-32); PLATELET COUNT 181 X10'3 (140-440); PROTHROMBIN TIME 10.5 SECONDS (9.0-12.0); RED BLOOD COUNT 4.84 X10'6 (4.20-5.60); RED CELL DISTRIBUTION WIDTH 21.4 % (11.5-14.5); WHITE BLOOD COUNT 9.2 X10'3 (4.5-11.0)
[2017-05-29] MEDS ORDERED: vancomycin/NS 1 GM ADD-VANTAGE 250 ML IV ONE (11:50)
[2017-05-29] MEDS ORDERED: cefepime 1GM/NS ADD-VANTAGE 100 ML IV ONE (11:50)
[2017-05-29] MEDS ORDERED: azithromycin/NS 500mg/250ml 250 ML IV ONE (11:50)
[2017-05-29 11:55] LABS: ALANINE AMINOTRANSFERASE 21 U/L (12-78); ALBUMIN 3.6 G/DL (3.4-5.0); ALKALINE PHOSPHATASE 97 IU/L (46-116); ANION GAP 2 (8-16); ASPARTATE AMINO TRANSFERASE 15 U/L (10-37); BILIRUBIN,TOTAL 0.4 MG/DL (0.1-1.0); BLOOD UREA NITROGEN 14 MG/DL (7-18); BUN/CREATININE RATIO 27.5 (6.6-38.0); CALCIUM 8.4 MG/DL (8.5-10.1); CHLORIDE 104 MMOL/L (99-107); CREATINE KINASE 25 U/L (26-192); CREATININE 0.51 MG/DL (0.40-0.90); GLUCOSE 107 MG/DL (70-104); MAGNESIUM 2.1 MG/DL (1.5-2.4); PHOSPHORUS 4.7 MG/DL (2.3-4.5); POTASSIUM 4.3 MMOL/L (3.5-5.1); SODIUM 145 MMOL/L (135-145); TOTAL CARBON DIOXIDE 39.4 MMOL/L (24-32); TOTAL PROTEIN 7.1 G/DL (6.4-8.2); eGFR > 90 ML/MIN
[2017-05-29 12:10] LABS: ABG BASE EXCESS 10.5 mmol/L (-2.0-3.0); ABG HCO3 41.5 mmol/L (22.0-26.0); ABG PCO2 (T) 94.6 mmHg (32.0-45.0); ABG PH (T) 7.255 (7.350-7.450); ABG PO2 (T) 82.1 mmHg (83-108); FCOHb 1.2 % (0.5-1.5); FMetHb 0.2 % (0.3-1.12); FO2Hb 93.7 % (94-100); PATIENT TEMPERATURE 36.1; RESPIRATORY RATE 20 b/min; TOTAL HEMOGLOBIN 12.3 G/dl (12.0-16.0)
[2017-05-29] MEDS ORDERED: morphine 4 MG/ML inj SYRINge IV PRN (13:05)
[2017-05-29] MEDS ORDERED: magnesium 2GM in 50ml NS 50 ML IV PRN (13:05)
[2017-05-29] MEDS ORDERED: magnesium hydroxide 30ml (MOM) UD suspension PO PRN (13:05)
[2017-05-29] MEDS ORDERED: sodium phosphate inj. 15 MMOL in dextrose 5%-water 150 ML IV PRN (13:05)
[2017-05-29] MEDS ORDERED: ondansetron 4mg rapidly disintigrating tab PO PRN (13:05)
[2017-05-29] MEDS ORDERED: HYDROcodone/acetaminophen 5mg/325mg tablet PO PRN (13:05)
[2017-05-29] MEDS ORDERED: levoFLOXACIN-Levaquin 500mg/D5 100 ML IV ONE (13:05)
[2017-05-29] MEDS ORDERED: Neutra Phos packet PO PRN (13:05)
[2017-05-29] MEDS ORDERED: potassium Cl 20 mEq SR tablet PO PRN ×2 (13:05)
[2017-05-29] MEDS ORDERED: magnesium Cl slow-release 64mg tablet PO PRN (13:05)
[2017-05-29] MEDS ORDERED: acetaminophen 325mg tablet PO PRN ×2 (13:05)
[2017-05-29] MEDS ORDERED: magnesium 4gm in 100ml NS 100 ML IV PRN (13:05)
[2017-05-29] MEDS ORDERED: sodium phosphate inj. 30 MMOL in dextrose 5%-water 250 ML IV PRN (13:05)
[2017-05-29] MEDS ORDERED: LORazepam 2 mg/ml vial IV ONE (13:25)
[2017-05-29] MEDS: normal saline 1000ml 1,000 ML IV SCH (13:37)
[2017-05-29] MEDS: methylPREDNISolone sod succ 125mg/2ml vial IV SCH ×2 (14:00→21:08)
[2017-05-29] MEDS ORDERED: cefepime 1GM/NS ADD-VANTAGE 100 ML IV SCH (16:00)
[2017-05-29 17:40] LABS: ABG BASE EXCESS 11.4 mmol/L (-2.0-3.0); ABG HCO3 38.5 mmol/L (22.0-26.0); ABG OXYGEN SATURATION 95.1 % (95-98); ABG PCO2 (T) 63.9 mmHg (32.0-45.0); ABG PH (T) 7.398 (7.350-7.450); ABG PO2 (T) 74.7 mmHg (83-108); ALLEN'S TEST Positive; FO2Hb 94.1 % (94-100); RESPIRATORY RATE 20 b/min; TOTAL HEMOGLOBIN 11.8 G/dl (12.0-16.0)
[2017-05-29] MEDS: albuterol 2.5 MG/3 ML nebule NEB PRN (19:39)
[2017-05-29] MEDS: docusate sod 100mg capsule PO SCH (21:10)
[2017-05-29] MEDS: heparin, porcine 5000 units/ml vial SQ SCH (21:11)
[2017-05-30] MEDS: cefepime 1GM/NS ADD-VANTAGE 100 ML IV SCH ×3 (00:32→15:16)
[2017-05-30] MEDS ORDERED: temazepam 15mg capsule PO ONE (01:40)
[2017-05-30] MEDS: albuterol 2.5 MG/3 ML nebule NEB PRN (03:21)
[2017-05-30] MEDS: normal saline 1000ml 1,000 ML IV SCH ×3 (03:41→19:39)
[2017-05-30] MEDS: methylPREDNISolone sod succ 125mg/2ml vial IV SCH ×4 (03:42→19:34)
[2017-05-30 03:56] LABS: ALANINE AMINOTRANSFERASE 21 U/L (12-78); ALBUMIN 3.2 G/DL (3.4-5.0); ALKALINE PHOSPHATASE 88 IU/L (46-116); ANION GAP 6 (8-16); ASPARTATE AMINO TRANSFERASE 13 U/L (10-37); BILIRUBIN,TOTAL 0.4 MG/DL (0.1-1.0); BLOOD UREA NITROGEN 12 MG/DL (7-18); BUN/CREATININE RATIO 15.4 (6.6-38.0); CALCIUM 8.2 MG/DL (8.5-10.1); CHLORIDE 104 MMOL/L (99-107); CREATININE 0.78 MG/DL (0.40-0.90); GLUCOSE 141 MG/DL (70-104); PHOSPHORUS 3.7 MG/DL (2.3-4.5); SODIUM 143 MMOL/L (135-145); TOTAL CARBON DIOXIDE 33.4 MMOL/L (24-32); TOTAL PROTEIN 6.5 G/DL (6.4-8.2); eGFR 76 ML/MIN
[2017-05-30] MEDS: morphine 4 MG/ML inj SYRINge IV PRN ×3 (05:39→15:16)
[2017-05-30] MEDS ORDERED: ASPI-1265 PO (05:47)
[2017-05-30 06:05] LABS: BASOPHILS % (AUTO) 0.1 % (0-1); EOSINOPHILS % (AUTO) 0.5 % (0-6); HEMATOCRIT 35.4 % (35.0-45.0); HEMOGLOBIN 10.8 g/dl (12.0-16.0); LYMPHOCYTES # (AUTO) 0.6 X10'3 (1.1-4.8); LYMPHOCYTES % (AUTO) 13.6 % (21-51); MEAN CORPUSCULAR HEMOGLOBIN 23.8 PG (27.0-31.0); MEAN CORPUSCULAR HGB CONC 30.5 % (33.0-36.5); MEAN CORPUSCULAR VOLUME 77.9 FL (78-98); MEAN PLATELET VOLUME 7.6 FL (7.4-10.4); MONOCYTES # (AUTO) 0.1 X10'3 (0-0.9); NEUTROPHILS # (AUTO) 3.9 X10'3 (1.8-7.7); NEUTROPHILS % (AUTO) 83.8 % (42-75); PLATELET COUNT 175 X10'3 (140-440); RED BLOOD COUNT 4.54 X10'6 (4.20-5.60); WHITE BLOOD COUNT 4.6 X10'3 (4.5-11.0)
[2017-05-30] MEDS: docusate sod 100mg capsule PO SCH ×2 (08:08→19:32)
[2017-05-30] MEDS: heparin, porcine 5000 units/ml vial SQ SCH ×2 (08:11→19:34)
[2017-05-30] MEDS: pantoprazole 40 MG vial IV SCH (08:12)
[2017-05-30] MEDS: levoFLOXACIN-Levaquin 500mg/D5 100 ML IV SCH (08:22)
[2017-05-30] MEDS: clonazePAM 1mg tablet PO SCH ×2 (13:08→19:32)
[2017-05-30] MEDS: ipratropium/albuterol 3ml nebule IH PRN ×2 (15:57→21:34)
[2017-05-30 18:00] VITALS: BP_DIAS 84
[2017-05-30] MEDS: famotidine 20mg tablet PO SCH (19:33)
[2017-05-30] MEDS: HYDROcodone/acetaminophen 10/325mg tab PO PRN (19:40)
[2017-05-30 20:00] VITALS: BP 109/55
[2017-05-30] MEDS: lactobacillus rhamnosus 10,000 MMU CELLS/CAPSULE PO SCH (20:00)
[2017-05-30] MEDS ORDERED: sennosides 8.6mg tablet PO SCH (21:00)
[2017-05-30] MEDS ORDERED: mirtazapine 15mg tablet PO SCH (21:00)
[2017-05-30 22:00] VITALS: BP 109/55
[2017-05-31] MEDS: cefepime 1GM/NS ADD-VANTAGE 100 ML IV SCH ×3 (00:07→16:00)
[2017-05-31] MEDS: HYDROcodone/acetaminophen 10/325mg tab PO PRN ×3 (00:17→13:35)
[2017-05-31 02:00] VITALS: BP 125/78
[2017-05-31] MEDS: methylPREDNISolone sod succ 125mg/2ml vial IV SCH ×3 (02:09→13:39)
[2017-05-31 06:00] VITALS: BP 125/84
[2017-05-31 07:21] LABS: BASOPHILS % (AUTO) 0 % (0-1); EOSINOPHILS # (AUTO) 0.1 X10'3 (0-0.9); EOSINOPHILS % (AUTO) 1.3 % (0-6); HEMATOCRIT 31.7 % (35.0-45.0); HEMOGLOBIN 9.9 g/dl (12.0-16.0); LYMPHOCYTES # (AUTO) 0.5 X10'3 (1.1-4.8); LYMPHOCYTES % (AUTO) 9.8 % (21-51); MEAN CORPUSCULAR HEMOGLOBIN 23.8 PG (27.0-31.0); MEAN CORPUSCULAR HGB CONC 31.2 % (33.0-36.5); MEAN CORPUSCULAR VOLUME 76.1 FL (78-98); MEAN PLATELET VOLUME 7.6 FL (7.4-10.4); MONOCYTES # (AUTO) 0.2 X10'3 (0-0.9); NEUTROPHILS # (AUTO) 4.6 X10'3 (1.8-7.7); NEUTROPHILS % (AUTO) 85.9 % (42-75); PLATELET COUNT 175 X10'3 (140-440); RED BLOOD COUNT 4.17 X10'6 (4.20-5.60); RED CELL DISTRIBUTION WIDTH 21.5 % (11.5-14.5); WHITE BLOOD COUNT 5.4 X10'3 (4.5-11.0)
[2017-05-31] MEDS: albuterol 2.5 MG/3 ML nebule NEB PRN ×2 (07:21→11:03)
[2017-05-31] MEDS: docusate sod 100mg capsule PO SCH (07:36)
[2017-05-31 07:38] LABS: ALANINE AMINOTRANSFERASE 18 U/L (12-78); ALBUMIN 2.9 G/DL (3.4-5.0); ALKALINE PHOSPHATASE 74 IU/L (46-116); ANION GAP 3 (8-16); ASPARTATE AMINO TRANSFERASE 12 U/L (10-37); BILIRUBIN,TOTAL 0.3 MG/DL (0.1-1.0); BLOOD UREA NITROGEN 17 MG/DL (7-18); BUN/CREATININE RATIO 29.3 (6.6-38.0); CALCIUM 7.8 MG/DL (8.5-10.1); CHLORIDE 105 MMOL/L (99-107); CREATININE 0.58 MG/DL (0.40-0.90); GLUCOSE 125 MG/DL (70-104); PHOSPHORUS 4.1 MG/DL (2.3-4.5); POTASSIUM 4.4 MMOL/L (3.5-5.1); SODIUM 142 MMOL/L (135-145); TOTAL CARBON DIOXIDE 33.6 MMOL/L (24-32); TOTAL PROTEIN 5.8 G/DL (6.4-8.2); eGFR > 90 ML/MIN
[2017-05-31] MEDS: clonazePAM 1mg tablet PO SCH (07:38)
[2017-05-31] MEDS: lactobacillus rhamnosus 10,000 MMU CELLS/CAPSULE PO SCH (07:39)
[2017-05-31] MEDS: famotidine 20mg tablet PO SCH (07:39)
[2017-05-31] MEDS: pantoprazole 40 MG vial IV SCH (07:41)
[2017-05-31] MEDS ORDERED: atorvastatin 10mg tablet PO SCH (08:00)
[2017-05-31] MEDS ORDERED: furosemide 40mg tablet PO SCH (08:00)
[2017-05-31] MEDS ORDERED: aspirin 81mg tab.chew PO SCH (08:00)
[2017-05-31] MEDS: heparin, porcine 5000 units/ml vial SQ SCH (08:47)
[2017-05-31] MEDS: levoFLOXACIN-Levaquin 500mg/D5 100 ML IV SCH (09:42)
[2017-05-31 11:00] VITALS: BP 124/77
[2017-05-31] MEDS ORDERED: POTA20TA10 PO (12:27)
[2017-05-31] MEDS ORDERED: ALPR1TAB2 PO (12:27)
[2017-05-31] MEDS ORDERED: PRED10TA23 PO (12:27)
[2017-05-31] MEDS ORDERED: OMEP20CA10 PO (12:27)
[2017-05-31] MEDS ORDERED: AZIT500T PO (12:44)
[2017-05-31 12:50] LABS: ABG BASE EXCESS 4.3 mmol/L (-2.0-3.0); ABG HCO3 29.4 mmol/L (22.0-26.0); ABG OXYGEN SATURATION 90.6 % (95-98); ABG PCO2 (T) 45.9 mmHg (32.0-45.0); ABG PH (T) 7.424 (7.350-7.450); ABG PO2 (T) 59.3 mmHg (83-108); ALLEN'S TEST Positive; FCOHb 0.7 % (0.5-1.5); FLOW 2 L/min; FMetHb 0.2 % (0.3-1.12); FO2Hb 89.8 % (94-100); RESPIRATORY RATE (OBSERVED) 20 b/min
[2017-05-31] MEDS ORDERED: morphine 4 MG/ML inj SYRINge IV PRN (14:53)
[2017-05-31 15:00] VITALS: BP 129/82
== END 2017-05-31 17:00 | disposition home or self-care (01) | DRG 189 ==
LOC: ER 10:10 → ED HOLD 13:05 → EDBEDREQSVC 05-30 14:22 → PCU 3S 05-30 14:55
PROVIDERS: ADMIT Internal Medicine Critical Care Medicine; ATTEND Internal Medicine
PROC: 5A09357 Assistance with Respiratory Ventilation, Less than 24 Consecutive Hours, Continuous Positive Airway Pressure (ICD-10-PCS; principal; 2017-05-29)
DX: J96.20 Acute and chronic respiratory failure, unspecified whether with hypoxia or hypercapnia (principal); J18.9 Pneumonia, unspecified organism; I11.0 Hypertensive heart disease with heart failure; I50.9 Heart failure, unspecified; J44.0 Chronic obstructive pulmonary disease with (acute) lower respiratory infection; Z99.81 Dependence on supplemental oxygen; J44.1 Chronic obstructive pulmonary disease with (acute) exacerbation; Z66 Do not resuscitate; G89.4 Chronic pain syndrome; E78.00 Pure hypercholesterolemia, unspecified; F41.9 Anxiety disorder, unspecified; I25.10 Atherosclerotic heart disease of native coronary artery without angina pectoris; I25.2 Old myocardial infarction; Z88.8 Allergy status to other drugs, medicaments and biological substances; Z79.82 Long term (current) use of aspirin; Z79.899 Other long term (current) drug therapy
CPT/HCPCS: 36415; 36600; 71045; 80053; 80162; 82550; 82553; 82803; 82948; 83605; 83735; 83874; 83880; 84100; 84145; 84443; 84484; 85018; 85025; 85379; 85610; 85730; 87040; 87070; 93005; 94640; 94660; 94760; 96365; 96375; 99291; 99292; A6213; C1758; C9113; J0456; J0692; J1644; J1956; J2060; J2270; J2930; J3370; J7030